=== PATIENT | male | born 1995 | race Caucasian/White ===

== ENCOUNTER 2021-09-28 12:48 | Emergency (ER) | payer SELFPAY ==
[2021-09-28 12:58] VITALS: BP 156/93; PULSE 102; RESP 16; TEMP 36.6; O2SAT 96
--- NOTE | 2021-09-28 13:01 | ED.ANXIETY ---
HPI - Anxiety General Chief Complaint: Anxiety Stated Complaint: panic attack Time Seen by Provider: 09/28/21 12:50 Source: patient, family and RN notes reviewed History of Present Illness HPI narrative: Patient is a 26-year-old male who presents the urgent care with his family member with complaints of possible panic attack. Patient states that started at 8 PM last night and he has had clammy hands and feet with a fast heart rate. Patient also reports of intermittent nausea but denies any vomiting. Denies of any recent fevers. States that he does have a history of anxiety and has not been treated for some time. Patient does have a history of following up with psychiatrist which she states he will do if necessary . Patient is currently not on any medications for anxiety. No other acute complaints. No acute distress noted. Patient aware of the plan of care. Some parts of this dictation were generated by voice recognition software and may contain typographical and/or grammatical inaccuracies. Related Data Allergies Allergy/AdvReac Type Severity Reaction Status Date / Time No Known Allergies Allergy Unverified 05/12/17 11:20 Review of Systems Review of Systems: CONSTITUTIONAL: Reports of chills, sweats with possible anxiety EYES: Denies visual changes, redness, or discharge. ENT: Denies rhinorrhea, congestion, sore throat, or otalgia. CARDIOVASCULAR: Denies chest pain, edema. Reports of fast heart rate . RESPIRATORY: Denies cough or dyspnea. GASTROINTESTINAL: Denies abdominal pain, nausea, vomiting, or diarrhea. GENITOURINARY: Denies dysuria or hematuria. SKIN: Denies rash or itching. Reports of clammy hands and feet MUSCULOSKELETAL: Denies back pain, joint pain, or myalgia. NEUROLOGIC: Denies headache, numbness, or weakness. All other systems reviewed are negative, except as documented in HPI. PMFSH Social History Social History Substance use type: does not use Comments At the time of my signature, I reviewed and agree with the nursing past medical, surgical, social, and family history. There is no relevant family history pertinent to the patient complaint. Exam Narrative: GENERAL: This is a well-nourished, well-developed patient, in no apparent distress. HEAD: normocephalic, atraumatic. EYES: PERRL. Sclera clear/white. Vision is grossly intact. EARS: External ears normal, auditory canals clear and without drainage, TMs normal without perforation. Hearing grossly intact. NOSE: External nose normal with no obvious nasal discharge, nares without redness, no rhinorrhea. THROAT: Mucous membranes moist, mild postnasal drainage NECK: Neck supple, CARDIOVASCULAR: Regular rate and rhythm RESPIRATORY: Clear to auscultation. Breath sounds equal bilaterally. No wheezes, rales, or rhonchi. SKIN: warm, intact with no suspicious lesions or rash, good texture and turgor. NEURO: awake, alert, and oriented to person, place and time. There were no obvious focal neurologic abnormalities. EXTREMITIES: No clubbing, cyanosis, or edema. Course Course Level of Care: Express Care Visit Vital Signs Vital signs: Vital Signs Temperature 97.9 F 09/28/21 12:58 Pulse Rate 102 H 09/28/21 12:58 Respiratory Rate 16 09/28/21 12:58 Blood Pressure 156/93 H 09/28/21 12:58 Pulse Oximetry 96 09/28/21 12:58 Temperature 97.9 F 09/28/21 12:58 Pulse Rate 102 H 09/28/21 12:58 Respiratory Rate 16 09/28/21 12:58 Blood Pressure 156/93 H 09/28/21 12:58 Pulse Oximetry 96 09/28/21 12:58 Reviewed-patient is informed that they may have pre-hypertension or hypertension based on a blood pressure reading in the department. I recommend the patient call the primary care provider listed on their discharge instructions or a physician of their choice this week to arrange follow-up for further evaluation of possible pre-hypertension or hypertension. MDM - Anxiety MDM Narrative Medical decision making narrative: Explained to the pat
== END 2021-09-28 13:11 | disposition home or self-care (01) ==
PROVIDERS: Emergency Provider Nurse Practitioner Family; PCP Nurse Practitioner Family
DX: F41.9 Anxiety disorder, unspecified (principal)
CPT/HCPCS: 99203; G0463

== ENCOUNTER 2022-07-21 18:05 | Emergency (ER) | payer BC, SELFPAY ==
--- NOTE | 2022-07-21 18:07 | ED.EAR ---
HPI - Ear Problem General Chief complaint: Ear Stated complaint: Ear Problem Time Seen by Provider: 07/21/22 18:08 Source: patient and RN notes reviewed History of Present Illness HPI Narrative: Patient is a 27-year-old male who presents to urgent care with complaints of right ear discomfort for the last couple days. Patient states he has been using ear wax removal drops to the ear. Denies any upper respiratory issues. No other acute complaints. No acute distress noted. Patient aware of the plan care. Some parts of this dictation were generated by voice recognition software and may contain typographical and/or grammatical inaccuracies. Related Data Allergies Allergy/AdvReac Type Severity Reaction Status Date / Time No Known Allergies Allergy Verified 07/21/22 18:23 Review of Systems Review of Systems: CONSTITUTIONAL: Denies fever, chills, or sweats. EYES: Denies visual changes, redness, or discharge. ENT: Denies rhinorrhea, congestion, sore throat . Reports right otalgia CARDIOVASCULAR: Denies chest pain, palpitations, or edema. RESPIRATORY: Denies cough or dyspnea. GASTROINTESTINAL: Denies abdominal pain, nausea, vomiting, or diarrhea. GENITOURINARY: Denies dysuria or hematuria. SKIN: Denies rash or itching. MUSCULOSKELETAL: Denies back pain, joint pain, or myalgia. NEUROLOGIC: Denies headache, numbness, or weakness. All other systems reviewed are negative, except as documented in HPI. PMFSH Social History Social History Substance use type: does not use Comments At the time of my signature, I reviewed and agree with the nursing past medical, surgical, social, and family history. There is no relevant family history pertinent to the patient complaint. Exam Narrative: GENERAL: This is a well-nourished, well-developed patient, in no apparent distress. HEAD: normocephalic, atraumatic. EYES: PERRL. Sclera clear/white. Vision is grossly intact. EARS: External ears normal, auditory canals clear and without drainage, cerumen noted bilaterally with impaction to the right. Left TM normal without perforation. Hearing grossly intact. NOSE: External nose normal with no obvious nasal discharge, nares without redness, no rhinorrhea. THROAT: Mucous membranes moist NECK: Neck supple, non-tender without lymphadenopathy, masses or thyromegaly. CARDIOVASCULAR: Regular rate and rhythm without murmurs, gallops, or rubs. RESPIRATORY: Clear to auscultation. Breath sounds equal bilaterally. No wheezes, rales, or rhonchi. SKIN: warm, intact with no suspicious lesions or rash, good texture and turgor. NEURO: awake, alert, and oriented to person, place and time. There were no obvious focal neurologic abnormalities. EXTREMITIES: No clubbing, cyanosis, or edema. Course Course Level of Care: Express Care Visit Vital Signs Vital signs: Vital Signs Temperature 97.8 F 07/21/22 18:10 Pulse Rate 75 07/21/22 18:10 Respiratory Rate 14 07/21/22 18:10 Blood Pressure 148/78 H 07/21/22 18:10 Pulse Oximetry 98 07/21/22 18:10 Oxygen Delivery Room Air 07/21/22 18:10 Temperature 97.8 F 07/21/22 18:10 Pulse Rate 75 07/21/22 18:10 Respiratory Rate 14 07/21/22 18:10 Blood Pressure 148/78 H 07/21/22 18:10 Pulse Oximetry 98 07/21/22 18:10 Oxygen Delivery Room Air 07/21/22 18:10 reviewed- Patient is informed that they may have pre-hypertension or hypertension based on a blood pressure reading in the department. I recommend the patient call the primary care provider listed on their discharge instructions or a physician of their choice this week to arrange follow-up for further evaluation of possible pre-hypertension or hypertension. Procedures Ear Wax Removal Right Ear: Cerumenolytic Used: other ( lighted curette) TM Examination: TM(s) intact, normal appearance Patient Tolerated Procedure: well and no complications Complications: no problems Additional Comments:
[2022-07-21 18:10] VITALS: BP 148/78; PULSE 75; RESP 14; TEMP 36.6; O2SAT 98
== END 2022-07-21 18:30 | disposition home or self-care (01) ==
PROVIDERS: Emergency Provider Nurse Practitioner Family
DX: H61.21 Impacted cerumen, right ear (principal); F41.9 Anxiety disorder, unspecified
CPT/HCPCS: 69210; 99213; G0463

== ENCOUNTER 2025-03-11 08:59 | Emergency (ER) | payer BC, SELFPAY ==
--- NOTE | 2025-03-11 09:05 | ED.SKABFB ---
HPI - Skin/Abscess/Foreign Bdy General Chief complaint: Skin/Abscess/Foreign Body Stated complaint: remove tick head Time Seen by Provider: 03/11/25 09:05 Source: patient, RN notes reviewed and old records reviewed Mode of arrival: ambulatory Limitations: no limitations History of Present Illness HPI narrative: 29-year-old male presents to the [facility] with concerns of a tick head being left in the right upper arm Patient reports that he pulled a tick off of his arm yesterday. Had washed it. Has also tried cleaning it with peroxide and alcohol. Believes there is a head still stuck. No redness or swelling noted. Onset (ago): day(s) (1) Related Data Allergies Allergy/AdvReac Type Severity Reaction Status Date / Time No Known Allergies Allergy Verified 07/21/22 18:23 Review of Systems Review of Systems: All systems reviewed & are unremarkable except as noted in HPI and below Constitutional: Constitutional: Reports no additional constitutional complaints Musculoskeletal: Musculoskeletal: Reports no additional musculoskeletal complaints Integumentary/Breasts: Skin/Breast: Reports as per HPI PMFSH Social History Social History Substance use type: does not use Comments At the time of my signature, I reviewed and agree with the nursing past medical, surgical, social, and family history. There is no relevant family history pertinent to the patient complaint. Exam Const: General: cooperative, healthy appearing, comfortable, no acute distress, well developed, alert and well nourished Nutritional Appearance: well nourished Orientation/consciousness: patient oriented x3 Limitations: no limitations HENMT: Head: normal to inspection Eyes: General: appearance normal, both eyes and all related structures Alignment and Position: alignment normal Neck: Neck: normal visual inspection, full ROM, no lymphadenopathy and no meningeal signs Chest: Chest palpation & inspection: normal inspection of the chest Resp: Effort & Inspection: normal respiratory effort and able to speak in complete sentences Cardio: Rate: regular rate Skin: General skin exam: normal color and no rashes or lesions noted Full body images:  1. area of tick. patient tried removing the dark center. Neuro: General: patient oriented x3, gait normal, moves all extremities and no meningeal signs Cognition (Neuro): normal cognition Speech: normal speech Gait exam (Neuro): Normal gait present Extrem: General: normal to inspection, full ROM, capillary refill normal and normal gait Psych: Appearance: grossly normal and well kempt Mental Status: mental status grossly normal Speech and movement: Normal speech and movement present and Clear speech present Affect: normal affect Attitude: cooperative Course Course Emergency Course: Area cleaned with Betadine, used an 18 gauge scraped the dark center from the middle of the wound. Cleaned again with Betadine. Patient tolerated well. Bandage placed. Level of Care: Express Care Visit Vital Signs Vital signs: Vital Signs Temperature 97.6 F 03/11/25 09:10 Pulse Rate 92 03/11/25 09:10 Respiratory Rate 16 03/11/25 09:10 Blood Pressure 145/77 H 03/11/25 09:10 Pulse Oximetry 99 03/11/25 09:10 Oxygen Delivery Room Air 03/11/25 09:10 Temperature 97.6 F 03/11/25 09:10 Pulse Rate 92 03/11/25 09:10 Respiratory Rate 16 03/11/25 09:10 Blood Pressure 145/77 H 03/11/25 09:10 Pulse Oximetry 99 03/11/25 09:10 Oxygen Delivery Room Air 03/11/25 09:10 Reviewed MDM - Skin/Abscess/Foreign Bdy MDM Narrative Medical decision making narrative: Patient sitting in exam room. Patient is nontoxic, vitals stable. Patient presents with concerns of a tick at left in his right upper arm. Area cleaned, removed dark center Prescribe prophylactic dose of doxycycline Patient appropriate for outpatient treatment with close follow-up Discharge instructions reviewed with patient, as well as provided in writing per nursing staff. The instructions also include specific and strict return/GO TO THE ER as well as f/u information. All questions have been answered, and the patient deny any further questions with discharge and discharge plan. Some parts of this dictation were generated by voice recognition software and may contain typographical and/or grammatical inaccuracies. Differential Diagnosis Differential diagnosis: Likely abscess of skin or subcutaneous tissue, urticaria, cellulitis, insect bites and contact dermatitis Critical Care Time Critical Care Time Critical Care Time: No Discharge Plan Discharge Clinical Impression: Tick bite of left upper arm Patient Disposition: Home Condition: Stable Instructions: Antibiotic Form, Tick Bite (ED) Additional Instructions: Wash area twice a day with warm soapy water, pat dry Patient Language: Telugu Prescriptions: New doxycycline monohydrate 100 mg tablet 200 mg PO ONCE Qty: 2 0RF No Action hydroxyzine HCl 25 mg tablet 25 mg PO TID PRN (Reason: anxiety) Qty: 30 0RF Follow-up/Referrals: PHYSICIAN NOT ON STAFF,NONSTAFF [Primary Care Provider] - Time of Disposition: 09:26
[2025-03-11 09:10] VITALS: BP 145/77; PULSE 92; RESP 16; TEMP 36.4; O2SAT 99
--- OUTSIDE RECORDS SUMMARY | 2025-03-11 09:10 | XMS_ITS | Patient Health Record ---
Author Organization [facility] [place] Address [address] [address] Care Team Providers Care Tapper Supervisor Name Role Phone Iglesia Mazariegos Unavailable [phone] Reason For Referral No Information Medications Medication SIG (Take, Route, Fr equency, Duration) Notes Start Date End Date Status hydrOXYzine HCl 25 MG Oral Active busPIRone HCl 5 MG Oral A ctive Plan Of Treatment No Information
--- OUTSIDE RECORDS SUMMARY | 2025-03-11 09:10 | XMS_ITS | Clinical Summary ---
Author Organization [facility] Address [address] [place] [address] Care Team Providers Care Coordinator Skill Training Program Name Role Phone [place] Primary Care Provider [phone] Allergies No known active allergies Medications naproxen (NAPROSYN) 500 mg tablet Take 1 tablet (500 mg total) by mouth 2 (two) times a day with meals 30 tablet 2 Active tamsulosin (FLOMAX) 0.4 mg extended release capsule Take 1 capsule (0.4 mg total) by mouth daily for 7 days 7 capsule 2 Active ondansetron ODT (ZOFRAN-ODT) 4 mg disintegrating tablet Take 1 tablet (4 mg total) by mouth every 8 (eight) hours as needed for nausea 10 tablet 2 Active Active Problems No known active problems Surgical History Surgery Date Site/Laterality Comments NO PAST SURGERIES Medical History Medical History Date Comments Anxiety Social History Tobacco Use Types Packs/Day Years Used Date Smoking Tobacco: Never Smokeless Tobacco: Never Tobacco Cessation:Counseling Given: Not Answered Alcohol Use Standard Drinks/Week Comments Yes 0 (1 standard drink = 0.6 oz pur e alcohol) Personal Safety Answer Date Recorded Getting School Help Needed Not on file 08/20 Sex and Gender Information Value Date Recorded Sex Assigned at Not on file Legal Sex Male 9:04 AM [employer] Gender Identity Not on file Sexual Orientation Not on file Obstetrics History Last Filed Vital Signs Vital Sign Reading Time Taken Comments Blood Pressure 165/87 07/10/2022 3:20 AM [employer] Pulse 72 07/10/2022 3:20 AM [employer] Temperature 37.1 C (98.8 F) 07/10/2022 3:20 AM [employer] Respiratory Rate 16 07/10/2022 3:20 AM [employer] Oxygen Saturation 100% 07/10/2022 3:20 AM [employer] Inhaled Oxygen Concentration - - Weight 79.4 kg (175 lb) 07/10/2022 3:20 AM [employer] Height 180.3 cm (5' 11) 07/10/2022 3:20 AM [employer] Body Mass Index 24.41 07/10/2022 3:20 AM [employer] Plan of Treatment Health Maintenance Due Date Last Done Comments Depression Screening 1994 Hepatitis C Screening 1994 Regular Well Visit/Exam 18-64 2012 HPV Vaccines (1 - 3-dose SCDM series) 2021 Covid-19 Vaccine ( season) 2024 03/11/2021, 02/18/2021 Influenza Vaccine (#1) 2025 06/18/2019, 2017 DTaP/Tdap/Td Vaccine (8 - Td or Tdap) 12/15/2027 12/14/2017, 02/13/2007, 03/16/1998, Additional history exists Hepatitis B Screening Completed 1994 , 1994, 1994 Varicella Vaccines Completed 02/13/2007, 09/26/1995 Pneumococcal vaccine <65 Aged Out No longer eligible based on patient's age to complete this topic Insurance [employer] Member Subscriber Plan / Payer (Ef fective 2021-Present) Name:Nehemias Mosley Relation to Subscriber:Self Name:Nehemias Mosley Payer ID:[id number] (NAIC) Type:NICHOLAS MCCARTNEY Address: [facility] [id number] [place] [id number] Care Teams Coordinator Skill Training Program Relationship Specialty Start Date End Date [place] PA PCP - General Orthopedic Surgery 07/10/22
--- OUTSIDE RECORDS SUMMARY | 2025-03-11 09:10 | XMS_ITS | Data Portability ---
Author Organization [place] [facility]- Address # [address] [place] [address] Assessment Encounter Date Assessment Date Assessment LastModified by Organization Details LastModified Time 07/29/2010 07/29/2010 Overall, depression appears to be under control. If only his academic performance could or would improve, things would be even better.. We will continue on same dose of Celexa since Dad feels in general that things are well from the standpoint of deression. Not available 04/27/2011 02:01:54 01/03/2011 01/03/2011 Poor academic performance - pt puts no effort into school work. Past hx of depression - is currently on antidepressant - doing better that what he had been. overall, I am not sure that patient is in the best of enviromentsbut I only see a few minutes of interchange in the office between adoptive father and pt. In view of the fact that pt is leaving to spend the summer with hes parents, I do not see a reason to change medication or doase at this point because I nor anyone who know ralph will be around to assesss the change. In additon, with changing his enviroment, I do not think that changing hes med also would be a good idea - all at the same time. I advised pt and adoptive father to return here after he returns from [place] if that occurs. Not available 03/14/2011 02:04:52 12/12/2011 12/12/2011 Contusion to right foot - advised ibuprofen, ice packs to area, and PE excuse for next 2 weeks at school. Anticipatory guidance to mother. Followup here as needed. malika Not available 12/12/2011 15:09:29 08/27/2012 08/27/2012 Hearing difficulties in right ear - not sure this is due to a serous otitis or actual damage to TM. This was explained to father and patient. Will refer to ENT for more definitive exam - has appt for malika gilbert Not available 08/27/2012 19:21:33 Plan of Treatment Reminders Order Date Submit Date Provider Last Modified By Organization Details Last Modified Time Details Appointments None recorded. Lab None recorded. Referral ENT referral 2012 013 ROMERO Not available 3 03:32:45 Procedures None recorded. Surgeries None recorded. Imaging tympanogram 2012 013 [facility], [address] [facility] Ambrocio [place], [place], [address], 3 03:32:41 Medication Orders Celexa 40 mg tablet 2009 010 ROMERO Not available 3 03:26:04 Patient TargetsNo targets recorded. Patient InstructionsNo instructions recorded. Reason for Referral Referring Physician: Arabella Bain, Pediatric Medicine, Encounter Date: 08/27/2012 Results Created Date Observation Date Name Description Value Unit Range Abnormal Flag Note LastModifiedBy Organization Detail LastModifiedTime 08/27/19 13 08/27/2012 joslyn jackson Right Type B Curve Flat Not Available [address] [place], [place], [address], 08/27/2012 19:21:33 08/27/19 13 08/27/2012 joslyn jackson Left Type A Normal Not Available [address] [place], [place], [address], 08/27/2012 19:21:33 12/13/19 12 12/12/2011 imagi lizandro/john baldwin tic resul t No observ ation record ed. [address] [place], [address], 03/08/2013 03:29:33 Result Notes None recorded. Problems Name Problem SNOMED Code Status Onset Date Resolution Date Notes Provider Name and Address Organization Details Recorded Time Joint pain in ankle and foot Active Not Available [facility] 3 03:02:37 Sudden hearing loss 58111746 Active Not Available [facility] 3 03:02:37 Contusion of ankle 80961775 Active Not Available [facility] 3 03:03:03 Objective tinnitus 70754524 Active Not Available [facility] 3 03:02:37 Otalgia 96276660 Active Not Available [facility] 3 03:02:37 Impacted cerumen 89012324 Active Not Available [facility] 3 03:02:37 Contusion of foot 82505700 Active Not Available [facility] 3 03:03:03 Depressive disorder 72003531 Active 010 Not Available [facility] 3 03:02:37 Problem Notes None recorded. Procedures Surgical History Date Name Laterality Status Provider Name and Address Organization Details Recorded Time 08/27/19 13 Cerumen Removal w/ instrumentation completed Arabella Bain MD [address] [place] [address] [address], [address], [facility], 08/27/2012 19:21:33 Imaging Results None recorded. Procedure Notes None recorded. Medical Equipment None Reported. Allergies No known drug allergies Medications Name Sig Start Date Stop Date Status Note LastModified by Organization Details LastModified Time minocycline 100 mg capsule active Not Available Not Available Not Available minocycline 50 mg capsule active Not Available Not Availabl e Not Available Celexa 40 mg tablet Take 1.5 tablets every day by oral route for 30 days. 010 active Not Available Not Available Not Avai lable amoxicillin 875 mg-potassium clavulanate 125 mg tablet active Not Available Not Availabl e Not Available Celexa active 60 mg Not Available Not Availa ble Not Available Vitals Date Recorded Body height Body weight Body mass index (BMI) Respiratory rate Body temperature Heart rate Systolic And Diastolic Provider Name and Address Organization Details Last Updated DateTime 3 170.815 cm 93706.1 607 g 17.1 kg/m2 20 /min 98.4 [degF] 96 /min 112/64 mm[Hg] Breanna Quinones [facility], 3 15:02:14 Date Recorded Body height Body weight Body mass index (BMI) Respiratory rate Body temperature Heart rate Systolic And Diastolic Provider Name and Address Organization Details Last Updated DateTime 2 172.72 cm 14073.1 02959 g 17.9 kg/m2 16 /min 99.6 [degF] 68 /min 132/90 mm[Hg] SAMUEL Silver [address], [address] [place] [address] [employer], 2 12:18:45 Date Recorded Body weight Respiratory rate Body temperature Heart rate Systolic And Diastolic Provider Name and Address Organization Details Last Updated DateTime 1 74932.3 3943 g 16 /min 99.8 [degF] 60 /min 116/84 mm[Hg] [facility], 1 13:18:38 Date Recorded Body weight Respiratory rate Body temperature Heart rate Systolic And Diastolic Provider Name and Address Organization Details Last Updated DateTime 0 10864.8 9365 g 18 /min 98.6 [degF] 60 /min 148/98 mm[Hg] [facility], 0 09:26:56 Social History None recorded. Functional Status None recorded. Mental Status None recorded. Family History Nothing Reported. Medical History Condition Response Diabetes N Bedwetting N Other Developmental Delay N ER or UC Visits N Nasal Allergies N Skin problems N Asthma / Wheezing N Frequent Ear Infections N Hospitalizations N Frequent Headaches N ADD or ADHD N Allergies N Broken bones N ear or hearing problems N Sleep Problems / Snoring N Concerns with Hearing or Vision N Constipation N Murmur / Cardiac N Serious Injuries N Albuterol / Nebulizer N History of UTI N Immunizations Vaccine Type Date Status Note Provider Nam e and Address Organization Details Recorded Time OPV, trivalent 4 completed Not Available [facility] 06/29/2011 06:14:11 Hep B, unspecified formulation 5 completed Not Available [facility] 06/29/2011 06:14:11 DTaP-Hib 5 completed Not Available [facility] 06/29/2011 06:14:11 OPV, trivalent 5 completed Not Available [facility] 06/29/2011 06:14:11 Hep B, unspecified formulation 4 completed Not Available [facility] 06/29/2011 06:14:11 MMR 5 completed Not Available [facility] 06/29/2011 06:14:11 DTaP-Hib 5 completed Not Available [facility] 06/29/2011 06:14:11 varicella 6 completed Not Available [facility] 06/29/2011 06:14:11 OPV, trivalent 5 completed Not Available [facility] 06/29/2011 06:14:11 DTaP-Hib 4 completed Not Available [facility] 06/29/2011 06:14:11 DTaP, unspecified formulation 8 completed Not Available [facility] 06/29/2011 06:14:11 DTaP-Hib 4 completed Not Available [facility] 06/29/2011 06:14:11 MMR 8 completed Not Available [facility] 06/29/2011 06:14:11 Hep B, unspecified formulation 4 completed Not Available [facility] 06/29/2011 06:14:11 OPV, trivalent 4 completed Not Available [facility] 06/29/2011 06:14:11 meningococcal MPSV4 8 completed Not Available [facility] 06/29/2011 06:14:11 Tdap 7 completed Not Available [facility] 06/29/2011 06:14:11 varicella 7 completed Not Available [facility] 06/29/2011 06:14:11 Past Encounters Encounter ID Performer Location Encounter Start Date Encounter Closed Date Diagnosis/Indication Diagnosis SNOMED-CT Code Diagnosis ICD10 Code Diagnosis Note [id number] [facility] [address] [place] [address],[address] [address] 03/26/2010 08:56:40 03/26/2010 09:17:54 [id number] Arabella Bain [facility] [address] [place] [address],[facility] [address] [place] [address] 07/29/2010 09:19:09 07/30/2010 14:16:52 [id number] Arabella Bain [facility] [address] [place] [address],[facility] [address] [place] [address] 01/03/2011 12:22:58 01/05/2011 10:27:36 [id number] Arabella Bain [facility] [address] [place] [address],[facility] [address] [place] [address] 12/12/2011 11:41:45 12/15/2011 12:36:29 [id number] Arabella Bain [facility] [address] [place] [address],[facility] [address] [place] [address] 08/27/2012 14:46:02 08/30/2012 10:42:43 Health Concerns Section Related Observation LastModified by Organization Detai ls LastModified Time None Recorded Concern Status LastModified by Organization Details LastModified Time None Recorded Advance Directives Directive None Recorded Payers Insurance Date Sequence Insurance Name Policy Number Policy Bynum Covered Member ID Bynum Member ID Guarantor Name 03/29/2014 1 [employer] - CHOICE - OPEN ACCESS (POS) [id number] Vi Mosley [id number] Nehemias Mosley 03/29/2014 1 [facility] [id number] Vi Mosley [id number] Nehemias Mosley
--- OUTSIDE RECORDS SUMMARY | 2025-03-11 09:10 | XMS_ITS | Encounter Summary ---
Author Organization [facility] Address [address] [place] [address] Phone Care Team Providers Care Owner Consulting Engineer Name Role Phone Vin Lake Primary Care Provider Reason for Visit * Reason Comments Medication Refill Encounter Details Date Type Department Care Team (Late st Contact Info) Description [facility] [place] [address] [place] [address] Vin Lake PAC [address] [place] [address] Medication Refill Social History Tobacco Use Types Packs/Day Years Used Date Smoking Tobacco: Never Smokeless Tobacco: Never Alcohol Use Standard Drinks/Week Comments Yes 0 (1 standard drink = 0.6 oz pur e alcohol) PHQ-2 Answer Date Recorded Total Score - Questions 1-9 1 11/12 Sexually Active Control Partners Comments Yes Sex and Gender Information Value Date Recorded Sex Assigned at Not on file Legal Sex Male 9:23 AM CDT Gender Identity Not on file Sexual Orientation Not on file documented as of this encounter Miscellaneous Notes * Telephone Encounter - Vin Lake PAC - 09/14/2022 5:20 PM CST Rx request approved. 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 Requested Prescriptions Pending Prescriptions Disp Refills hydrOXYzine (ATARAX) 25 MG Tablet [Pharmacy Med Name: hydrOXYzine HCl 25 MG Oral Tablet] 90 Tablet 0 Sig: Take 1 Tablet by mouth every 8 hours as needed for Anxiety for up to 60 days. Not Delegated - Off Protocol Failed - 09/14/2022 3:49 PM Failed - This refill cannot be delegated Failed - Active on medication list Passed - Visit with relevant provider in past 12 months or upcoming 90 days Recent Visits Date Type Provider Dept 07/13/22 Office Visit Vin Lake, PAC [facility] 06/02/22 Office Visit Vin Lake, PAC [facility] 04/21/22 Office Visit Vin Lake, PAC [facility] 11/23/21 Office Visit Sanam Pineda, PAC [facility] Showing recent visits within past 365 days and meeting all other requirements Future Appointments Date Type Provider Dept 12/01/22 Appointment Vin Lake, PAC [facility] Showing future appointments within next 90 days and meeting all other requirements 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 documented in this encounter Plan of Treatment Upcoming Encounters Date Type Department Care Team (Late st Contact Info) Description 01/02/2026 8:00 AM CDT Lab [facility] [address] [place] [phone] [facility] 01/09/2026 4:45 PM CDT Office Visit [facility] [place] [address] [place] [phone] Vin Lake, PAC [address] [place] [address] documented as of this encounter Visit Diagnoses Diagnosis Anxiety Anxiety state, unspecified documented in this encounter Care Teams Owner Consulting Engineer Relationship Specialty Start Date End Date Vin Lake, [facility] [address] [place] [phone] PCP - General Physician Bandage Wrapping Machine Operator 04/21/22 documented as of this encounter
--- OUTSIDE RECORDS SUMMARY | 2025-03-11 09:10 | XMS_ITS | Encounter Summary ---
Author Organization [facility] Address [address] [place] [address] Phone Care Team Providers Care Merchandising Internship Name Role Phone Vin Lake Primary Care Provider Reason for Visit * Reason Comments Medication Refill Encounter Details Date Type Department Care Team (Late st Contact Info) Description 02/01/2023 [facility] [place] [address] [place] [address] Vin Lake PAC [address] [place] [address] Medication Refill Social History Tobacco [...] Telephone Encounter - Vin Lake PAC - 02/01/2023 12:05 PM CDT Rx request approved * Telephone Encounter - Brandi Pettit RN - 02/01/2023 9:56 AM CDT Medication failed the protocol, provider to review and approve the medication order if appropriate. Requested Prescriptions Pending Prescriptions Disp Refills hydrOXYzine (ATARAX) 25 MG Tablet [Pharmacy Med Name: hydrOXYzine HCl 25 MG Oral Tablet] 90 Tablet 0 Sig: TAKE 1 TABLET BY MOUTH EVERY 8 HOURS NEEDED FOR ANXIETY FOR UP TO 60 DAYS Not Delegated - Off Protocol Failed - 02/01/2023 8:34 AM Failed - This refill cannot be delegated Passed - Visit with relevant provider in past 12 months or upcoming 90 days Recent Visits Date Type Provider Dept 12/22/22 Office Visit Vin Lake, [facility] 07/13/22 Office Visit Vin Lake, PAC [facility] 06/02/22 Office Visit Vin Lake, [facility] 04/21/22 Office Visit Vin Lake, PAC [facility] Showing recent visits within past 365 days and meeting all other requirements Future Appointments No visits were found meeting these conditions. Showing future appointments within next 90 days and meeting all other requirements documented in this encounter Plan of Treatment Upcoming Encounters Date Type Department Care Team (Late st Contact Info) Description 01/02/2026 8:00 AM CDT Lab [facility] [place] [address] [place] [phone] [facility] 01/09/2026 4:45 PM CDT Office Visit [facility] [place] [address] [place] [phone] Vin Lake PAC [address] [place] [address] documented as of this encounter Visit Diagnoses Diagnosis Anxiety Anxiety state, unspecified documented in this encounter Care Teams Merchandising Internship Relationship Specialty Start Date End Date Vin Lake, PAC [address] [place] [address] PCP - General Physician Vice President Of Recruiting 04/21/22 documented as of this encounter
--- OUTSIDE RECORDS SUMMARY | 2025-03-11 09:10 | XMS_ITS | Clinical Summary ---
Author Organization [facility] Medic al [facility] Address [address] [place] [address] Phone Care Team Providers Care Bench Shear Operator Name Role Phone Vin Lake Primary Care Provider [phone] Allergies No known active allergies Medications No known medications Active Problems Problem Noted Date Diagnosed Date MDD (major depressive disord er), recurrent episode, moderate 02/22/2024 STEFFI (generalized anxiety disorder) 06/02/2022 Depressive disorder 03/26/2010 Encounters Date Type Department Care Team Description 03/11/2025 Nurse Triage [facility] [address] [place] [phone] Vin Lake, PAC Tick Bite 01/02/2025 4:45 PM CDT Office Visit [facility] Primary [facility] [place] [address] Vin Lake, WILFRED Preventative health care (Adult) (Primary Dx); MDD (major depressive disorder), recurrent episode, moderate (HCC); STEFFI (generalized anxiety disorder) Discharge Disposition: Discharged to home or Selfcare 01/01/2025 9:00 AM CDT Lab [facility] [place] [address] [facility] health care (Adult) Discharge Disposition: Discharged to home or Selfcare 01/01/2025 Results Follow-Up [facility] Primary Care - [place] [address] [place] [address] Vin Lake, WILFRED CMP (COMPREHENSIVE METABOLIC PANEL), LIPID PANEL, CBC WITH AUTO DIFFERENTIAL, THYROID SCREEN WITH REFLEX 01/01/2025 Travel 12/12/2024 Nurse Triage [facility] Central Call Center [address] [place] [address] Vin Lake, WILFRED Suicide Attempt from Last 3 Months Immunizations Immunization Administration Dates Next Due DTAP VACCINE, UNSPECIFIED FORMULATION 03/16/1998 DTAP/HIB COMBINED VACCINE 06/12/1995,,1994,05/13 Hepatitis B Vaccine,unspecif ied Formulation 1994,1994,1994 Influenza Vaccine, MDCK,quad rivalent, pres free 06/18/2019 Influenza Vaccine, Quadrivalent, PF 04/25/2018 Influenza,Split Virus,Trivalent,Injectable,PF 04/22/2024 MMR Vaccine 03/16/1998,03/13/1995 Meningococcal Polysaccharide Vaccine (MPSV4) 02/12/2008 OPV 06/12/1995, 5,1994,05/13 TDAP Vaccine 12/14/2017,02/13/2007 Varicella Vaccine Live 02/13/2007,09/26/1995 Family History Medical History Relation Name Comments Prostate Cancer Father No Known Problems Mother Relation Name Status Comments Father Alive Mother Alive Social History Tobacco Use Types Packs/Day Years Used Date Smoking Tobacco: Never Smokeless Tobacco: Never Tobacco Cessation:Counseling Given: No Alcohol Use Standard Drinks/Week Comments Not Currently 0 (1 standard drink = 0.6 oz pur e alcohol) [facility] Utilities Answer Date Recorded In the past 12 months has [employer], gas, oil, or water [employer] threatened to shut off services in your home? Patient declined 01/02/2025 Social Connection and Isolation Panel Answer Date Recorded In a typical week, how many times do you talk on the phone with family, friends, or neighbors? Patient declined 01/02/2025 How often do you get togethe r with friends or relatives? Patient declined 01/02/2025 How often do you attend catholic or mu-ism serv ices? Patient declined 01/02/2025 Do you belong to any clubs o r organizations such as catholic groups, unions, fraternal or athletic groups, or school groups? Patient declined 01/02/2025 How often do you attend meet ings of the clubs or organizations you belong to? Patient declined 01/02/2025 Are you , , di vorced, , never , or living with a partner? Patient declined 01/02/2025 AUDIT-C Answer Date Recorded Q1: How often do you have a drink containing alc ohol? Patient declined 01/02/2025 Q2: How many drinks containi ng alcohol do you have on a typical day when you are drinking? Patient declined 01/02/2025 Q3: How often do you have si x or more drinks on one occasion? Patient declined 01/02/2025 Overall Financial Resource Strain (CARDIA) Answe r Date Recorded How hard is it for you to pa y for the very basics like food, housing, medical care, and heating? Patient declined 01/02/2025 PHQ-2 Answer Date Recorded Total Score - Questions 1-9 17 12/13 [facility] - Occupational Stress Questionnaire Answer Date Recorded Do you feel stress - tense, restless, nervous, or anxious, or unable to sleep at night because your mind is troubled all the time - these days? Patient declined 01/02/2025 Exercise Vital Sign Answer Date Recorde d On average, how many days pe r week do you engage in moderate to strenuous exercise (like a brisk walk)? Patient declined On average, how many minutes do you engage in exercise at this level? Patient declined 01/02/2025 Hunger Vital Sign Answer Date Recorded Within the past 12 months, y ou worried that your food would run out before you got the money to buy more. Patient declined Within the past 12 months, t he food you bought just didn't last and you didn't have money to get more. Patient declined PRAPARE - Transportation Answer Date Re corded In the past 12 months, has l ack of transportation kept you from medical appointments or from getting medications? Patient declined 01/02/2025 In the past 12 months, has l ack of transportation kept you from meetings, work, or from getting things needed for daily living? Patient declined 01/02/2025 Housing Stability Vital Sign Answer Ancelmo e Recorded In the last 12 months, was t here a time when you were not able to pay the mortgage or rent on time? Patient declined 01/03/20 25 In the past 12 months, how m any times have you moved where you were living? 0 01/02/2025 At any time in the past 12 m [facility], were you homeless or living in a senior care (including now)? Patient declined 01/02/2025 Sexually Active Control Partners Comments Yes Sex and Gender Information Value Date Recorded Sex Assigned at Not on file Legal Sex Male 9:23 AM CDT Gender Identity Not on file Sexual Orientation Not on file Last Filed Vital Signs Vital Sign Reading Time Taken Comments Blood Pressure 140/80 01/02/2025 4:47 PM CDT Pulse 71 01/02/2025 4:47 PM CDT Temperature 37.6 C (99.6 F) 01/02/2025 4:47 PM CDT Respiratory Rate 18 01/02/2025 4:47 PM CDT Oxygen Saturation 98% 01/02/2025 4:47 PM CDT Inhaled Oxygen Concentration - - Weight 67.6 kg (149 lb) 01/02/2025 4:47 PM CDT Height 180.3 cm (5' 11) 01/04/2024 4:22 PM CDT Body Mass Index 20.78 01/04/2024 4:22 PM CDT Plan of Treatment Upcoming Encounters Date Type Department Care Team (Late st Contact Info) Description 01/02/2026 8:00 AM CDT Lab [facility] Primary [facility] [place] [address] [place] [address] Lab, [facility] 01/09/2026 4:45 PM CDT Office Visit [facility] Primary [facility] [place] [address] [place] [address] Vin Lake, PAC [address] [place] [address] Health Maintenance Due Date Last Done Comments Hepatitis C Virus (HCV) Screening 1994 Human Papillomavirus (HPV) Immunization (1 - 3-dose SCDM series) 2021 Influenza Immunization (#1) 2025 09/0 04/2024, 06/18/2019, 04/25/2018 DTaP/Tdap/Td Immunization (8 - Td or Tdap) 12/15/2027 12/14/2017, 02/13/2007, 03/16/1998, Additional history exists Respiratory Syncytial Virus (RSV) Immunization (Adult) (1 - 1-dose 75+ series) 2069 Hepatitis B Immunization Completed 995, 1994, 1994 Meningococcal Immunization (ACWY) Aged Out 02/12/2008 No longer eligible based on patient's age to complete this topic TdaP Immunization Discontinued 12/14/2017, 02/13/2007 SARS-COV-2 Immunization Completed 09/05/19 25, 03/11/2021, 02/18/2021 Pneumococcal Immunization Combined Aged Out No longer eligible based on patient's age to complete this topic Rotavirus Immunization Aged Out No lo nger eligible based on patient's age to complete this topic Goals Goal Patient Goal Type Associated Problems Recent Progress Patient-Stated? Author Depression Behavioral Health On track(2023 10:32 AM INSPECTOR SALVAGE) No Martha Castanon, [facility] Note: Goal/Objective: Decrease depressive features. Anticipated Time Frame for Goal Completion: 6 months Goal Reviewed with: patient Readiness to change: Thinking about making a change Department associated with goal: [facility] Steps to achieve goal: will attend counseling/psychotherapy sessions at least once monthly, at least 6 sessions, utilizing individual and/or group sessions to express thoughts and feelings. to identify, verbalize and process at least three contributing factors/triggers to depression. to identify and verbalize at least three actions/skills to prevent and/or cope with depression. to put into action, at least one time weekly, for one month, an action/skill to prevent and or cope with depression. Procedures Procedure Name Priority Date/Time Associated Diagnosis Comments THYROID SCREEN WITH REFLEX Routine 01/01/2025 8:44 AM CDT Preventative health care (Adult) CBC WITH AUTO DIFFERENTIAL Routine 01/01/2025 8:44 AM CDT Preventative health care (Adult) THYROID SCREEN WITH REFLEX Routine 01/01/2025 8:44 AM CDT Preventative health care (Adult) LIPID PANEL Routine 01/01/2025 8:44 AM CDT Preventative health care (Adult) CMP (COMPREHENSIVE METABOLIC PANEL) Routine 01/01/2025 8:44 AM CDT Preventative health care (Adult) COMPLETE BLOOD COUNT (CBC) WITH DIFF Routine 01/01/2025 8:44 AM CDT Preventative health care (Adult) from Last 3 Months Results * THYROID SCREEN WITH REFLEX (01/01/2025 8:44 AM CDT) Pathologist [facility] TSH 0.660 0.300 - 5.000 mIU/L 01/01/2025 1:22 PM CDT [facility] Blood Venipuncture / Unknown 01/01/2025 8:44 AM CDT 01/01/2025 8:44 AM CDT us Vin Lake PAC CHEMISTRY ORDERABLES Final R esult [facility] [address] [place] [address] * CBC WITH AUTO DIFFERENTIAL (01/01/2025 8:44 AM CDT) WBC 6.63 4.00 - 12.00 10(3)/mcL 01/01/2025 12:48 PM CDT [facility] RBC 5.05 4.40 - 5.80 10(6)/mcL 01/01/2025 12:48 PM CDT [facility] HEMOGLOBIN (HGB) 16.0 13.0 - 16.5 g/dL 01/01/2025 12:48 PM CDT [facility] HEMATOCRIT (HCT) 47.5 38.0 - 50.0 % 01/01/2025 12:48 PM CDT [facility] MCV 94.1 82.0 - 96.0 fL 01/01/2025 12:48 PM CDT [facility] MCH 31.7 26.0 - 32.0 pg 01/01/2025 12:48 PM CDT [facility] MCHC 33.7 31.0 - 36.0 g/dL 01/01/2025 12:48 PM CDT [facility] PLATELET COUNT 297 140 - 440 10(3)/mcL 01/01/2025 12:48 PM CDT [facility] RDW 12.7 11.8 - 15.5 % 01/01/2025 12:48 PM CDT [facility] MPV 9.8 8.0 - 12.6 fL 01/01/2025 12:48 PM CDT [facility] NEUTROPHILS 53.4 40.0 - 68.0 % 01/01/2025 12:48 PM CDT [facility] LYMPHOCYTES 36.8 19.0 - 49.0 % 01/01/2025 12:48 PM CDT [facility] MONOCYTES 7.2 3.0 - 13.0 % 01/01/2025 12:48 PM CDT [facility] EOSINOPHILS 1.7 0.0 - 8.0 % 01/01/2025 12:48 PM CDT [facility] BASOPHILS 0.9 0.0 - 1.0 % 01/01/2025 12:48 PM CDT [facility] ABSOLUTE NEUTROPHILS 3.54 1.40 - 5.30 10(3)/mcL 01/01/2025 12:48 PM CDT [facility] ABSOLUTE LYMPHOCYTES 2.44 0.90 - 3.30 10(3)/mcL 01/01/2025 12:48 PM CDT [facility] ABSOLUTE MONOCYTES 0.48 0.10 - 0.90 10(3)/mcL 01/01/2025 12:48 PM CDT [facility] ABSOLUTE EOSINOPHIL 0.11 0.00 - 0.50 10(3)/mcL 01/01/2025 12:48 PM CDT [facility] ABSOLUTE BASOPHILS 0.06 0.00 - 0.10 10(3)/mcL 01/01/2025 12:48 PM CDT [facility] NRBC PER 100 WBC 0 01/02/20 12:48 PM CDT [facility] Blood Venipuncture / Unknown 01/01/2025 8:44 AM CDT 01/01/2025 8:44 AM CDT us Vin Lake PAC HEMATOLOGY ORDERABLES Final Result [facility] [address] [place] [address] * LIPID PANEL (01/01/2025 8:44 AM CDT) CHOLESTEROL 154 <200 mg/dL 01/01/2025 2:57 PM CDT [facility] TRIGLYCERIDES 50 <150 mg/dL 01/01/2025 2:57 PM CDT [facility] HDL CHOLESTEROL 56 >40 mg/dL 2:57 PM CDT [facility] LDL 88 <130 mg/dL 01/01/2025 2:57 PM CDT [facility] VLDL 10 10 - 50 mg/dL 01/01/2025 2:57 PM CDT [facility] CHOL/HDL RATIO 2.8 0.0 - 4.4 01/01/2025 2:57 PM CDT [facility] NON-HDL CHOLESTEROL 98 <130 mg/dL 01/01/2025 2:57 PM CDT [facility] IS THE PATIENT REQUIRED TO BE FASTING? Yes 01/01/2025 2:57 PM CDT [facility] HAS THE PATIENT BEEN FASTING? Yes 01/01/2025 2:57 PM CDT [facility] Blood Venipuncture / Unknown 01/01/2025 8:44 AM CDT 01/01/2025 8:44 AM CDT us [place] PAC CHEMISTRY ORDERABLES Final R esult [facility] [address] [place] [address] * (ABNORMAL) CMP (COMPREHENSIVE METABOLIC PANEL) (01/01/2025 8:44 AM CDT) SODIUM 138 136 - 145 mmol/L 01/01/2025 2:57 PM CDT [facility] POTASSIUM 4.0 3.5 - 5.1 mmol/L 01/01/2025 2:57 PM CDT [facility] CHLORIDE 104 98 - 107 mmol/L 01/01/2025 2:57 PM CDT [facility] CO2, VENOUS 27 22 - 30 mmol/L 01/01/2025 2:57 PM CDT [facility] ANION GAP 11.0 <18.0 mmol/L 01/01/2025 2:57 PM CDT [facility] GLUCOSE 94 70 - 99 mg/dL 01/01/2025 2:57 PM CDT [facility] BUN 10 9 - 21 mg/dL 01/01/2025 2:57 PM CDT [facility] CREATININE, BLOOD 0.95 0.70 - 1.30 mg/dL 01/01/2025 2:57 PM CDT [facility] BUN/CREATININE RATIO 11(L) 12 - 20 ratio 01/01/2025 2:57 PM CDT [facility] TOTAL PROTEIN 7.2 6.0 - 8.0 g/dL 01/01/2025 2:57 PM CDT [facility] ALBUMIN 5.0 3.5 - 5.0 g/dL 01/01/2025 2:57 PM CDT [facility] A/G RATIO 2.3(H) 1.0 - 2.2 01/01/2025 2:57 PM CDT [facility] CALCIUM 9.1 8.7 - 10.5 mg/dL 01/01/2025 2:57 PM CDT [facility] T BILI 0.9 0.2 - 1.2 mg/dL 01/01/2025 2:57 PM CDT [facility] SGOT (AST) 22 <43 U/L 01/01/2025 2:57 PM CDT [facility] SGPT (ALT) 26 <56 U/L 01/01/2025 2:57 PM CDT [facility] ALKALINE PHOSPHATASE 42 40 - 150 U/L 01/01/2025 2:57 PM CDT [facility] IS THE PATIENT REQUIRED TO BE FASTING? Yes 01/01/2025 2:57 PM CDT [facility] HAS THE PATIENT BEEN FASTING? Yes 01/01/2025 2:57 PM CDT [facility] GFR, ESTIMATED >60 >=60 01/01/2025 2:57 PM CDT [facility] Comment: Creatinine Clearance is the preferred criteria for selecting drug dose adjustments in renally impaired patients. The GFR is provided as additional pertinent clinical information. GFR is reported in mL/min/1.73 sq m. Calculation based on the Chronic Kidney Disease Epidemiology Collaboration (CKD- EPI) equation refit without adjustment for race. GFR, EST. >60 >=60 025 2:57 PM CDT [facility] GFR, EST. NONAFRICAN >60 >=60 01/01/2025 2:57 PM CDT [facility] Blood Venipuncture / Unknown 01/01/2025 8:44 AM CDT 01/01/2025 8:44 AM CDT us Vin [place] PAC CHEMISTRY ORDERABLES Final R esult [facility] [address] [facility] [place] [address] from Last 3 Months Insurance [facility] Care Teams Bench Shear Operator Relationship Specialty Start Date End Date Vin Lake, PAC [address] [place] [address] PCP - General Physician Block Sawyer 04/21/22
--- OUTSIDE RECORDS SUMMARY | 2025-03-11 09:10 | XMS_ITS | Encounter Summary ---
Author Organization [facility] Address [address] [place] [address] Phone Care Team Providers Care Asbestos Wire Finisher Name Role Phone Vin [place] Primary Care Provider [phone] Reason for Visit * Reason Comments Medication Refill Encounter Details Date Type Department Care Team (Late st Contact Info) Description 10/31/2023 [facility] [place] [address] [place] [address] Vin Lake PAC [address] [place] [address] Medication Refill Social History Tobacco [...] Telephone Encounter - Vin Lake PAC - 11/01/2023 7:26 AM CDT Refill approved. * Telephone Encounter - Osei Gallo, RN - 10/31/2023 8:34 AM CDT Medication failed the protocol, provider to review and approve the medication order if appropriate. Requested Prescriptions Pending Prescriptions Disp Refills hydrOXYzine (ATARAX) 25 MG Tablet [Pharmacy Med Name: hydrOXYzine HCl 25 MG Oral Tablet] 90 Tablet 0 Sig: TAKE 1 TABLET BY MOUTH EVERY 8 HOURS NEEDED FOR ANXIETY FOR UP TO 60 DAYS Not Delegated - Off Protocol Failed - 10/31/2023 8:04 AM Failed - This refill cannot be delegated Passed - Visit with relevant provider in past 12 months or upcoming 90 days Recent Visits Date Type Provider Dept 09/20/23 Office Visit Vin Lake, PAC [facility] 12/22/22 Office Visit Vin Lake, WILFRED [facility] Showing recent visits within past 365 days and meeting all other requirements Future Appointments Date Type Provider Dept 12/18/23 Appointment Lab, [facility] 12/25/[address] Vin Lake PAC [facility] Showing future appointments within next 90 days and meeting all other requirements documented in this encounter Plan of Treatment Upcoming Encounters Date Type Department Care Team (Late st Contact Info) Description 01/02/2026 8:00 AM CDT Lab [facility] [place] [address] [place] [id number] [facility] 01/09/2026 4:45 PM CDT Office Visit [facility] [place] [address] [place] [address] Vin Lake PAC [address] [place] [id number] documented as of this encounter Visit Diagnoses Diagnosis Anxiety Anxiety state, unspecified documented in this encounter Care Teams Asbestos Wire Finisher Relationship Specialty Start Date End Date Vin Lake, PAC [address] [place] [address] PCP - General Physician Care Transition Mgr 04/21/22 documented as of this encounter
--- OUTSIDE RECORDS SUMMARY | 2025-03-11 09:10 | XMS_ITS | Referral Summary ---
Author Organization [facility] Address [address] [place] [address] Care Team Providers Care Road Mechanic Name Role Phone Vin Lake Primary Care Provider [phone] Allergies No known active allergies Medications naproxen [...] Active Active Problems No known active problems Social History Tobacco Use Types Packs/Day Years [...] on file Legal Sex Male 9:04 AM BOILER TESTING TECHNICIAN Gender Identity Not on file Sexual Orientation Not on file Last Filed Vital Signs Vital Sign Reading Time Taken Comments Blood Pressure 165/87 07/10/2022 3:20 AM BOILER TESTING TECHNICIAN Pulse 72 07/10/2022 3:20 AM BOILER TESTING TECHNICIAN Temperature 37.1 C (98.8 F) 07/10/2022 3:20 AM BOILER TESTING TECHNICIAN Respiratory Rate 16 07/10/2022 3:20 AM BOILER TESTING TECHNICIAN Oxygen Saturation 100% 07/10/2022 3:20 AM BOILER TESTING TECHNICIAN Inhaled Oxygen Concentration - - Weight 79.4 kg (175 lb) 07/10/2022 3:20 AM BOILER TESTING TECHNICIAN Height 180.3 cm (5' 11) 07/10/2022 3:20 AM BOILER TESTING TECHNICIAN Body Mass Index 24.41 07/10/2022 3:20 AM BOILER TESTING TECHNICIAN Plan of Treatment Not on file Insurance [employer] Care Teams Road Mechanic Relationship Specialty Start Date End Date Vin Lake PA PCP - General Orthopedic Surgery 07/10/22
--- OUTSIDE RECORDS SUMMARY | 2025-03-11 09:11 | XMS_ITS | Encounter Summary ---
Author Organization [facility] Address [address] [place] [address] Phone Care Team Providers Care Bridge Painter Name Role Phone Vin Lake Primary Care Provider [phone] Reason for Visit * Reason Onset Date Comments Tick Bite 03/11/2025 Encounter Details Date Type Department Care Team (Late st Contact Info) Description 03/11/2025 Nurse Triage [facility] [address] [place] [address] Vin Lake, PAC [address] [place] [id number] Tick Bite Social History Tobacco Use Types Packs/Day Years Used Date Smoking Tobacco: Never Smokeless Tobacco: Never Alcohol Use Standard Drinks/Week Comments Not Currently 0 (1 standard drink = 0.6 oz pur e alcohol) [facility] Utilities Answer Date Recorded In the past 12 months has [employer], gas, oil, or water [employer] threatened to shut off services in your home? Patient declined 01/02/2025 Social Connection and Isolation Panel Answer Date Recorded In a typical week, how many times do you talk on the phone with family, friends, or neighbors? Patient declined 01/02/2025 How often do you get togethe r with friends or relatives? Patient declined 01/02/2025 How often do you attend latter day or restorationism serv ices? Patient declined 01/02/2025 Do you belong to any clubs o r organizations such as latter day groups, unions, fraternal or athletic groups, or [...] Total Score - Questions 1-9 17 12/13 [facility] - Occupational Stress [...] any time in the past 12 m [facility], were you homeless or living in a fci (including now)? Patient declined 01/02/2025 Sexually Active Control Partners Comments Yes Sex and Gender Information Value Date Recorded Sex Assigned at Not on file Legal Sex Male 9:23 AM CDT Gender Identity Not on file Sexual Orientation Not on file documented as of this encounter Miscellaneous Notes * Telephone Encounter - Nini Aguilar RN - 03/11/2025 8:01 AM CDT SITUATION: 29 y.o. with tick bite BACKGROUND: Patient contacting PCP office. Tick bite was 03/11/2025 Per chart review, VIVIAN 01/02/2025 ASSESSMENT: Symptom Description / Location: Attempted to remove the tick, was able to removed most of it but there are still pieces in the skin Located at back of right upper arm Size of apple seed Tick looked flat Unsure of type of tick Denies redness to site, rash Treatment / Response: neosporin, peroxide, rubbing alcohol with some relief. Caller denies pain. Denies fever. RECOMMENDATION: Caller agreeable to highest disposition listed: Go to Office or Video Visit Now. Care advice provided per triage guideline. Caller verbalized understanding. Due to office unavailability within disposition, advised for patient to be seen at prompt care or urgent care. Caller agreeable to prompt care/urgent care. Discussed utilizing [employer] to: find [facility] or [facility] - Reason for Disposition: Can't remove live tick (after using Care Advice) . Protocols Used: Tick Bite-A-OH See care advice and disposition for Guideline. First positive answer recorded, all responses to prior questions were negative. If symptoms increase, change or if new symptoms develop, call your health care provider or call back. Recommendations were based on caller information and is not a diagnosis. Verified and reviewed all triage information with caller. documented in this encounter Plan of Treatment Upcoming Encounters Date Type Department Care Team (Late st Contact Info) Description 01/02/2026 8:00 AM CDT Lab [facility] [address] [place] [phone] [facility] 01/09/2026 4:45 PM CDT Office Visit [facility] [address] [place] [address] Vin Lake PAC [address] [place] [address] documented as of this encounter Goals Goal Patient Goal Type Associated Problems Recent Progress Patient-Stated? Author Depression Behavioral Health On track(2023 10:32 AM STOCK HANDLER) Martha Baldwin, [facility] Note: Goal/Objective: Decrease depressive features. Anticipated Time [...] to prevent and or cope with depression. documented as of this encounter Visit Diagnoses Not on filedocumented in this encounter Additional Health Concerns Assessment Noted Time PHQ-9 Depression Total Score: 17 025 4:50 PM CDT documented as of this encounter Care Teams Bridge Painter Relationship Specialty Start Date End Date Vin Lake, PAC [address] [place] [phone] PCP - General Physician Stonemason Supervisor 04/21/22 documented as of this encounter
--- OUTSIDE RECORDS SUMMARY | 2025-03-11 09:11 | XMS_ITS | Encounter Summary ---
Author Organization [facility] Address [address] [place] [address] Phone Care Team Providers Care Principal Military Analyst Name Role Phone Vin Lake Primary Care Provider [phone] Reason for Visit * Reason Onset Date Comments Suicide Attempt 12/12/2024 Encounter Details Date Type Department Care Team (Late st Contact Info) Description 12/12/2024 Nurse Triage [facility] [address] [place] [address] [place] [address] [place] [phone] Suicide Attempt Social History Tobacco Use Types Packs/Day Years Used Date Smoking Tobacco: Never Smokeless Tobacco: Never Alcohol Use Standard Drinks/Week Comments Not Currently 0 (1 standard drink = 0.6 oz pur e alcohol) [facility] Utilities Answer Date Recorded In the past 12 months has [employer] electric, gas, oil, or water [employer] threatened to shut off services in your home? No 03/21/2024 Social Connection and Isolation Panel Answer Date Recorded In a typical week, how many times do you talk on the phone with family, friends, or neighbors? Twice a week 03/21/2024 How often do you get together with friends or re latives? Never 03/21/2024 How often do you attend sabianist or islam serv ices? Never 03/21/2024 Do you belong to any clubs o r organizations such as sabianist groups, unions, fraternal or athletic groups, or school groups? No 03/21/2024 How often do you attend meet ings of the clubs or organizations you belong to? Never 03/21/2024 Are you , , di vorced, , never , or living with a partner? Never 03/21/2024 AUDIT-C Answer Date Recorded Q1: How often do you have a drink containing alc ohol? Monthly or less 03/21/2024 Q2: How many drinks containi ng alcohol do you have on a typical day when you are drinking? 1 or 2 03/21/2024 Q3: How often do you have si x or more drinks on one occasion? Never 03/21/2024 Overall Financial Resource Strain (CARDIA) Answe r Date Recorded How hard is it for you to pa y for the very basics like food, housing, medical care, and heating? Somewhat hard 03/21/2024 PHQ-2 Answer Date Recorded Total Score - Questions 1-9 0 04/2024 [facility] - Occupational Stress Questionnaire Answer Date Recorded Do you feel stress - tense, restless, nervous, or anxious, or unable to sleep at night because your mind is troubled all the time - these days? Rather much 03/21/2024 Exercise Vital Sign Answer Date Recorde d On average, how many days pe r week do you engage in moderate to strenuous exercise (like a brisk walk)? 1 day 03/21/2024 On average, how many minutes do you engage in exercise at this level? 20 min 03/21/2024 Hunger Vital Sign Answer Date Recorded Within the past 12 months, y ou worried that your food would run out before you got the money to buy more. Never true 03/21/20 24 Within the past 12 months, t he food you bought just didn't last and you didn't have money to get more. Never true 03/21/2024 PRAPARE - Transportation Answer Date Re corded In the past 12 months, has l ack of transportation kept you from medical appointments or from getting medications? No 03/2024 In the past 12 months, has l ack of transportation kept you from meetings, work, or from getting things needed for daily living? No 03/21/2024 Housing Stability Vital Sign Answer Ancelmo e Recorded In the last 12 months, was t here a time when you were not able to pay the mortgage or rent on time? No 03/21/2024 In the past 12 months, how m any times have you moved where you were living? 0 03/21/2024 At any time in the past 12 m [facility], were you homeless or living in a half-way (including now)? No 03/21/2024 Sexually Active Control Partners Comments Yes Sex and Gender Information Value Date Recorded Sex Assigned at Not on file Legal Sex Male 9:23 AM CDT Gender Identity Not on file Sexual Orientation Not on file documented as of this encounter Miscellaneous Notes * Telephone Encounter - Bernie Poon RN - 12/13/2024 9:12 AM CDT Mother, Mary, phoned. Patient is with her and okay. She is going to encourage him to follow up in office. * Telephone Encounter - Bernie Poon RN - 12/13/2024 8:56 AM CDT Attempted to call patient, no answer at this time. Left message to call back. No PRD contacts listed. * Telephone Encounter - Bernie Poon RN - 12/13/2024 7:43 AM CDT Attempted to call patient, no answer at this time. Left message to call back. No PRD contacts listed. * Telephone Encounter - Vin Lake PAC - 12/12/2024 9:43 PM CDT If patient is having suicidal ideation, he would be best served in the ED. Would recommend this if patient is found and further recommendations are needed. * Telephone Encounter - Jossie Wilson RN - 12/12/2024 8:14 PM CDT SITUATION: Patient's mother calling. BACKGROUND: Patient's mother contacting PCP office. Caller is not listed as a personal compliance representative dealer designee on the most recent form. Just prior to calling this RN, patient made concerning statements (12/12/2024). ASSESSMENT: Symptom Description / Location: Patient has mentioned people picking on him Not socializing with friends now Stating he can't do anything right When leaving the house he said I don't know if I will be back or not & I just want to kill myself Drove off in his car He has made statements of harming himself before Patient's mother does not know where patient is currently since he left RECOMMENDATION: This RN attempted to call patient directly - no answer - left message for callback. Since we do notknow patient's whereabouts, advised for patient's mother to call 911 to possibly explain situation and give description of patient's car to see of anyone out patrolling sees him. Caller reports she will discuss this with patient's father. Requested for patient's mother to please call back if/when she has any updates. She verbalized understanding. Encounter routed to provider high priority to notify. - See care advice and disposition for Guideline. First positive answer recorded, all responses to prior questions were negative. If symptoms increase, change or if new symptoms develop, call your health care provider or call back. Recommendations were based on caller information and is not a diagnosis. Verified and reviewed all triage information with caller. Reason for Disposition Patient is threatening suicide now Protocols used: Suicide [id number] * Telephone Encounter - Ashley Loco - 12/12/2024 8:12 PM CDT Symptoms: Aggressive Behavior, Altered Mental Status Outcome: Transfer to mold burner queue Reason: Caller denied all higher acuity questions The caller accepted this outcome. Caller Denied: * Has a deadly weapon * Injured other people today * Attempted to injure other people today * Threatened to hurt other people today * Trouble walking * Caused by head injury * Started within the past 24 hours documented in this encounter Plan of Treatment Upcoming Encounters Date Type Department Care Team (Late st Contact Info) Description 01/02/2026 8:00 AM CDT Lab [facility] [address] [place] [address] [facility] 01/09/2026 4:45 PM CDT Office Visit [facility] [address] [place] [phone] Vin Lake, WILFRED [address] [place] [address] documented as of this encounter Goals Goal Patient Goal Type Associated Problems Recent Progress Patient-Stated? Author Depression Behavioral Health On track(2023 10:32 AM CARD GAME OPERATOR) Martha Baldwin, [facility] Note: Goal/Objective: Decrease depressive features. Anticipated Time Frame for Goal Completion: 6 months Goal Reviewed with: patient Readiness to change: Thinking about making a change Department associated with goal: [facility] Steps to achieve [...] Assessment Noted Time PHQ-9 Depression Total Score: 0 04/22/20 24 2:35 PM CDT documented as of this encounter Care Teams Principal Military Analyst Relationship Specialty Start Date End Date Vin Lake, PAC [address] [place] [phone] PCP - General Physician Transitions Manager 04/21/22 documented as of this encounter
== END 2025-03-11 09:34 | disposition home or self-care (01) ==
PROVIDERS: Emergency Provider Nurse Practitioner
DX: S40.862A Insect bite (nonvenomous) of left upper arm, initial encounter (principal); W57.XXXA Bitten or stung by nonvenomous insect and other nonvenomous arthropods, initial encounter
CPT/HCPCS: 99213; G0463

== ENCOUNTER 2025-08-01 08:16 | Emergency (ER) | payer BC, SELFPAY ==
--- NOTE | 2025-08-01 08:19 | ED_ITS ---
HPI - URI/Sore Throat General Chief Complaint: Upper Respiratory Infection Stated Complaint: Cough/Chills Time Seen by Provider: 08/01/25 08:28 Source: patient, RN notes reviewed and old records reviewed Mode of arrival: ambulatory Limitations: no limitations History of Present Illness HPI Narrative: 30-year-old male presents to the [facility] with 2 day history of cough, chills, body aches. States symptoms started Monday. Has tried [id number]-[id number] cold medicine. Has had chills with no measured fever. Treatments prior to arrival: cold medicine Related Data Home Medications ?Medication ?Instructions ?Recorded ?Confirmed ?Last Taken ?Type fluoxetine 20 mg capsule mg 08/01/25 Unknown History Allergies Allergy/AdvReac Type Severity Reaction Status Date / Time No Known Allergies Allergy Verified 08/01/25 08:29 Review of Systems Review of Systems: All systems reviewed & are unremarkable except as noted in HPI and below Constitutional: Constitutional: Reports as per HPI, Reports body ache(s) and Reports chills ENT: Reports system reviewed and no additional complaints, except as documented Cardiovascular: Cardiovascular: Reports no additional cardiovascular complaints, Denies chest pain and Denies dyspnea Respiratory: Respiratory: Reports as per HPI, Denies chest congestion, Reports cough and Denies dyspnea Musculoskeletal: Musculoskeletal: Reports no additional musculoskeletal complaints Integumentary/Breasts: Skin/Breast: Reports system reviewed and no additional complaints, except as docu PMFSH Social History Social History Substance use type: does not use Comments At the time of my signature, I reviewed and agree with the nursing past medical, surgical, social, and family history. There is no relevant family history pertinent to the patient complaint. Exam Const: General: cooperative, no acute distress, well developed, alert, tired appearing, uncomfortable and well nourished Nutritional Appearance: well nourished Orientation/consciousness: patient oriented x3 Limitations: no limitations HENMT: Head: normal to inspection Ears: hearing grossly normal bilaterally, external ears normal, TM's normal bilaterally, EAC's normal, mastoids normal and no periauricular adenopathy Face and sinus: normal facial exam, sinuses nontender and face symmetric Mouth: Yes Normal oral and palatal mucosa present, Yes lip normal, Yes tongue normal and Yes moist mucous membranes abnormal Throat: posterior oropharynx normal, uvula midline and no uvular edema Eyes: General: appearance normal, both eyes and all related structures Alignment and Position: alignment normal Neck: Neck: normal visual inspection, full ROM, no lymphadenopathy and no meningeal signs Chest: Chest palpation & inspection: normal inspection of the chest Resp: Effort & Inspection: normal respiratory effort and able to speak in complete sentences Auscultation: clear to auscultation bilaterally, no crackles, no rales, no rhonchi and no wheezes Cardio: Rate: regular rate Skin: General skin exam: normal color and no rashes or lesions noted Neuro: General: patient oriented x3, gait normal, moves all extremities and no meningeal signs Cognition (Neuro): normal cognition Speech: normal speech Gait exam (Neuro): Normal gait present Extrem: General: normal to inspection, full ROM, capillary refill normal and normal gait Psych: Appearance: grossly normal and well kempt Mental Status: mental status grossly normal Speech and movement: Normal speech and movement present and Clear speech present Affect: normal affect Attitude: cooperative Course Course Level of Care: Express Care Visit Vital Signs Vital signs: Vital Signs Temperature 97.2 F L 08/01/25 08:25 Pulse Rate 112 H 08/01/25 08:25 Respiratory Rate 16 08/01/25 08:25 Blood Pressure 139/83 08/01/25 08:25 Pulse Oximetry 98 08/01/25 08:25 Oxygen Delivery Room Air 08/01/25 08:25 Temperature 97.2 F L 08/01/25 08:25 Pulse Rate 112 H 08/01/25 08:25 Respiratory Rate 16 08/01/25 08:25 Blood Pressure 139/83 08/01/25 08:25 Pulse Oximetry 98 08/01/25 08:25 Oxygen Delivery Room Air 08/01/25 08:25 reviewed MDM MDM Narrative Medical decision making narrative: Patient sitting in exam room. Patient with 2 day history of URI symptoms. Patient is nontoxic, vitals are stable. Patient is flu A positive. Flu B and COVID negative patient is appropriate for outpatient treatment with close follow-up Discharge instructions reviewed with patient, as well as provided in writing per nursing staff. The instructions also include specific and strict return/GO TO THE ER as well as f/u information. All questions have been answered, and the patient deny any further questions with discharge and discharge plan. Some parts of this dictation were generated by voice recognition software and may contain typographical and/or grammatical inaccuracies. Differential Diagnosis Differential Diagnosis: Differential diagnostic considerations for upper respiratory infection include upper respiratory infection, croup, otitis media, sinusitis, viral infection, bronchitis, influenza, pharyngitis, strep, uvulitis.? Medical Records I have reviewed the following patient records and this information was taken into consideration when formulating the assessment and plan.: previous ER visits and previous clinic visits Lab Data Labs: Lab Results 08/01/25 Range/Units 08:35 POC Influenza A Ag Positive (Negative) POC Influenza B Ag Negative (Negative) POC SARS CoV-2 Ag Negative (Negative) reviewed Discharge Plan Discharge Clinical Impression: Influenza A Patient Disposition: Home Condition: Stable Instructions: Influenza (DC) Additional Instructions: Your rapid strep swab was negative today at [facility]. A throat culture will be sent to the laboratory for further testing. If the test is positive, you will receive a phone call within 48 hours and an appropriate antibiotic will be initiated at that time. Your rapid COVID test were negative Your rapid flu test was negative Your symptoms are likely due to a viral illness, which is not treated with antibiotics. Typically viral infections last 7-10 days, can linger for couple of weeks. It is very important to treat your symptoms. Drink plenty of water, Gatorade, Pedialyte, ice pops or Jell-O. -Alternate Tylenol and Motrin per package directions for fever or pain. You can alternate every 4 hours -Antihistamine medication such as Zyrtec/Claritin/Jamila during the day can help improve symptoms. -doing daily nasal irrigations can help relieve pressure your sinuses. Things like a Neti pot -Use Flonase twice a day for 5 days then daily to help reduce the inflammation and dry up your sinuses. -You can also use Mucinex. Be sure to drink plenty of water with this medication at least 8 ounces with every dose and it is important to drink 8 to 10 glasses of water per day. Water is a natural decongestant -Eat and drink things that are easy to swallow, like tea or soup, or popsicles. -Oral rinses such as: Salt water gargles and/or may use topical anesthetic (eg. Chloraseptic spray) or lozenges to relieve dryness or throat pain). -Frequent hand washing or hand business integration analyst is one of the best ways to prevent spread of infection. -Using a vaporizer or humidifier at night will also help thin secretions and help with coughing up phlegm. -Follow up with primary care provider in 7-10 days if condition is not improving - For new or worsening symptoms go directly to the nearest ER Patient Language: Dutch Prescriptions: No Action fluoxetine 20 mg capsule Follow-up/Referrals: UNKNOWN,DOCTOR [Primary Care Provider] Stand Alone Forms: Work/School Release IP Time of Disposition: 08:34
--- OUTSIDE RECORDS SUMMARY | 2025-08-01 08:24 | XMS_ITS | Clinical Summary ---
Author Organization [facility] Address [address] [place] [address] Phone Care Team Providers Care Process Owner Name Role Phone Vin Lake Primary Care Provider Allergies No known active allergies Medications FLUoxetine (PROzac) 20 MG Capsule Take 20 mg by mouth daily. 03/21/2025 Active Active Problems Problem Noted Date Diagnosed Date MDD (major depressive disord er), recurrent episode, moderate 02/22/2024 STEFFI (generalized anxiety disorder) 06/02/2022 Depressive disorder 03/26/2010 Immunizations Immunization Administration Dates Next Due DTAP [...] drink = 0.6 oz pur e alcohol) [facility] Utilities Answer Date Recorded In the past 12 months has e electric, gas, oil, or water company threatened to shut off services in your home? Patient declined 01/02/2025 Social Connection and Isolation Panel Answer Date Recorded In a typical week, how many times do you talk on the phone with family, friends, or neighbors? Patient declined 01/02/2025 How often do you get togethe r with friends or relatives? Patient declined 01/02/2025 How often do you attend pentecostal or jainism serv ices? Patient declined 01/02/2025 Do you belong to any clubs o r organizations such as pentecostal groups, unions, fraternal or athletic groups, or [...] Total Score - Questions 1-9 17 12/13 [facility] [place] of Occupat ional Health - Occupational Stress [...] any time in the past 12 m [facility], were you homeless or living in a long-term (including now)? Patient declined 01/02/2025 Sexually Active Control Partners Comments Yes Sex and Gender Information Value Date Recorded Sex Assigned at Not on file Legal Sex Male 9:23 AM CDT Gender Identity Not on file Sexual Orientation Not on file Last Filed Vital Signs Vital Sign Reading Time Taken Comments Blood Pressure 132/80 03/27/2025 3:06 PM CDT Pulse 78 03/27/2025 3:06 PM CDT Temperature 36.5 C (97.7 F) 03/27/2025 3:06 PM CDT Respiratory Rate 12 03/27/2025 3:06 PM CDT Oxygen Saturation 98% 03/27/2025 3:06 PM CDT Inhaled Oxygen Concentration - - Weight 71.2 kg (157 lb) 03/27/2025 3:06 PM CDT Height 180.3 cm (5' 11) 01/04/2024 4:22 PM CDT Body Mass Index 21.9 01/04/2024 4:22 PM CDT Plan of Treatment Upcoming Encounters Date Type Department Care Team (Late st Contact Info) Description 01/02/2026 8:00 AM CDT Lab [facility] - [place] [address] [place] [address] 01/09/2026 4:45 PM CDT Office Visit [facility] - [place] [address] [place] [address] Vin Lake PAC [address] [place] [address] Health Maintenance Due Date Last Done Comments Hepatitis C Virus (HCV) Screening 1994 Influenza Immunization (#1) 2025 09/0 04/2024, 06/18/2019, 04/25/2018 SARS-COV-2 Immunization ( season) 2025 09/05/2024, 03/11/2021, 02/18/2021 DTaP/Tdap/Td Immunization (8 - Td or Tdap) 12/15/2027 12/14/2017, 02/13/2007, 03/16/1998, Additional history exists Respiratory Syncytial Virus (RSV) Immunization (Adult) (1 - 1-dose 75+ series) 2069 Hepatitis B Immunization Completed 995, 1994, 1994 Varicella Immunization Completed 02/13/2007, 1995 Meningococcal Immunization (ACWY) Aged Out 02/12/2008 No longer eligible based on patient's age to complete this topic TdaP Immunization Discontinued 12/14/2017, 02/13/2007 Human Papillomavirus (HPV) Immunization (No Doses Required) Completed Pneumococcal Immunization Combined Aged Out No longer eligible based on patient's age to complete this topic Rotavirus Immunization Aged Out No lo nger eligible based on patient's age to complete this topic Goals Goal Patient Goal Type Associated Problems Recent Progress Patient-Stated? Author Depression Behavioral Health On track(2023 10:32 AM ROSS FURNACE OPERATOR) No Martha Makc, [facility] Note: Goal/Objective: Decrease depressive features. Anticipated Time Frame for Goal Completion: 6 months Goal Reviewed with: patient Readiness to change: Thinking about making a change Department associated with goal: [facility] Steps to achieve goal: [...] to prevent and or cope with depression. Insurance [facility] Care Teams Process Owner Relationship Specialty Start Date End Date Vin Lake, W[place]FR[place] [address] [place] [address] PCP - General Physician Panama Hat Hydraulic Press Operator 04/21/22 NIVIA MORRIS NP Nurse Practitioner Psychiatry 03/27/25
--- OUTSIDE RECORDS SUMMARY | 2025-08-01 08:24 | XMS_ITS | Patient Health Record ---
Author Organization [facility] [employer] Address [address] [facility] [[email or web address] [address] [place] [address] Care Team Providers Care Ict Support And Test Engineers Name Role Phone Vin Lima Primary Care Provider Neal Alvarez Unavailable [phone] Allergies No Known Allergies Reason For Referral No Information Medications Medication SIG (Take, Route, Frequency, Duration) Notes Start Date End Date Status FLUoxetine HCl 20 MG Capsule 1 tablet Orally Once a day; Duration: 90 days 03/21/2025 Active FLUoxetine HCl 20 MG Capsule 1 capsule Orally Once a day 03/21/2025 Active Social History Tobacco Use: Social History Observation Description Date Details (start date - stop date) Never Smoker NA - NA Sex Assigned At : Social History Observation Description Sex Assigned At Male Social History Miscellaneous: Social Info Question Answer Notes Safety issues: Do you feel safe at home? Yes Are there any firearms in the house? No Social History Social Info Question Answer Notes Household: Marital Status: Single Number of Adults in household: 2 Number of Children in Household: 0 Level of Education: Finished College Household: Social Info Question Answer Notes Household Marital status: single Number of adults in household: 2 Number of children in household: 0 Level of education: finished college Drug/Alcohol: Social Info Question Answer Notes Drugs Have you used drugs other than those for medical reasons in the past 12 months? No AUDIT-C (Standard) Did you have a drink containing alcohol in the past year? Yes How often did you have a drink containing alcohol in the past year? 2 to 4 times a month (2 points) How many drinks did you have on a typical day when you were drinking in the past year? 1 or 2 drinks (0 point) How often did you have six or more drinks on one occasion in the past year? Never (0 point) Points 2 Interpretation Negative Tobacco Use: Social Info Question Answer Notes Tobacco Control (Standard) Tobacco use: Nonsmoker Additional Details Category Social Info Options Details Miscellaneous: Occupation: [employer] Drug/Alcohol: Do you smoke marijuana? Den ies Problems Problem Type SNOMED Code ICD Code Onset Dates Problem Status W/U Status Risk Notes Problem Severe recurrent major depression without psychotic features (61139229) Severe episode of recurrent major depressive disorder, without psychotic features (F33.2) Active confirmed Vital Signs Heart Rate 98 /min 03/21/2025 Blood pressure diastolic 92 mm Hg 03/21/2025 Weight-kg 71.4 kg 03/21/2025 Blood pressure systolic 129 mm Hg 03/21/2025 Weight 157.4 lbs 03/21/2025 Encounters Encounter Location Date Provider Diagnosis [employer] [address] [address] 03/21/2025 Neal Clubb Severe episode of recurrent major depressive disorder, without psychotic features F33.2 ; Encounter for screening for cardiovascular disorders Z13.6 and Dietary counseling and surveillance Z71.3 [employer] [facility] [address] [address] 05/21/2025 Neal Clubb [employer] [address] [address] 04/16/2025 Neal Clubb [employer] [address] [address] 04/16/2025 Neal Clubb Severe episode of recurrent major depressive disorder, without psychotic features F33.2 [employer] [facility] [address] [address] 05/05/2025 Neal Clubb Assessments Encounter Date Diagnosis (ICD Code) Assessment Notes Treatment Notes Treatment Clinical Notes Section Notes 03/21/2025 Severe episode of recurrent major depressive disorder, without psychotic features (ICD-10 - F33.2) 04/16/2025 Severe episode of recurrent major depressive disorder, without psychotic features (ICD-10 - F33.2) 03/21/2025 Encounter for screening for cardiovascular disorders (ICD-10 - Z13.6) 03/21/2025 Dietary counseling and surveillance (ICD-10 - Z71.3) 03/21/2025 Other Fluoxetine material was printed Learning About Depression Screening material was printed 1. Major Depressive Disorder, recurrent - Patient reports a history of depression since teenage years, persistent for over 10 years - Current episode: low mood, loss of interest, feelings of worthlessness, fatigue, difficulty concentrating, sleep disturbances - Patient rates current depression at 5/10 - Recent stressor: loss of father in November 2024 - Previous trials: sertraline 25mg, hydroxyzine 25mg, possibly lamotrigine (limited recall of efficacy), possibly lexapro. - No current suicidal ideation or history of self-harm behaviors reported Plan: a. Initiate fluoxetine (Prozac) - Discussed SSRI mechanism, timeline for effects - Informed about potential side effects - Advised about black box warning for increased suicidal thoughts b. Instructed patient to download messaging rubio for direct communication c. Provided printed information about prescribed medication d. Discussed follow-up options and importance of maintaining communication 2. Generalized Anxiety Disorder - Patient reports excessive worry causing distress - Current anxiety rated at 5/10 - Occasional panic attacks or nervous breakdowns, most recent a couple weeks ago - Anxiety interferes with social interactions Plan: a. Monitor anxiety symptoms with fluoxetine treatment b. Encourage patient to report changes in anxiety levels or frequency of panic attacks 3. Grief - Patient experiencing grief following recent loss of father in November 2024 - Contributing to current depressive episode and may impact overall functioning and mood Plan: a. Monitor grief symptoms and their impact on overall mental health Follow-up: - Discussed follow-up options and importance of maintaining communication, especially if experiencing side effects Plan Of Treatment No Information Insurance Providers Payer Name Payer Address Payer Phone Subscriber Number Group Number Insured Name Patient Relationship to Insured Coverage Start Date Coverage End Date [facility] [address] [place] [address] [id number] ALEX MARIA R Self - patient is the insured Medical (General) History Medical History History ICD Code abdominal aortic aneurysm: No atrial fibrillation: No chronic fatigue syndrome: No essential tremor: No hyperlipidemia: No hypertension: No Parkinson's disease: No restless leg syndrome: No stroke: No subdural hematoma: No type 1 diabetes mellitus: No type 2 diabetes mellitus: No vitamin B12 deficiency: No vitamin D deficiency: No Surgical History Surgery Date(Month/Year) denied Hospitalization History Reason Date(Month/Year) denied
--- OUTSIDE RECORDS SUMMARY | 2025-08-01 08:24 | XMS_ITS | Encounter Summary ---
Author Organization [facility] Address [address] [place] [address] Phone Care Team Providers Care Automotive Parts Advisor Name Role Phone Vin Lake Primary Care Provider [phone] Reason for Visit * Reason Comments Medication Refill Encounter Details Date Type Department Care Team (Late st Contact Info) Description [facility]/20[facility] [place] [address] [place] [address] Vin Lake PAC [address] [place] [address] Medication Refill Social History Tobacco [...] Refill approved. * Telephone Encounter - Osei Gallo RN - 10/31/2023 8:34 AM CDT Medication [...] Provider Dept 09/20/23 Office Visit Vin Lake, WILFRED [facility] 12/22/22 Office Visit Vin Lake PAC [facility] Showing recent visits within past 365 days and meeting all other requirements Future Appointments Date Type Provider Dept 12/18/23 Appointment Lab [facility] 12/25/23 Appointment Vin Lake PAC [facility] Showing future appointments within next 90 days and meeting all other requirements documented in this encounter Plan of Treatment Upcoming Encounters Date Type Department Care Team (Late st Contact Info) Description 01/02/2026 8:00 AM CDT Lab [facility] - [place] [address] [place] [address] 01/09/2026 4:45 PM CDT Office Visit [facility] - [place] [address] [place] [address] Vin Lake PAC [address] [place] [address] documented as of this encounter Visit Diagnoses Diagnosis Anxiety Anxiety state, unspecified documented in this encounter Additional Health Concerns Infection Onset Date Last Indicated Resolved Time COVID - 19 03/27/2025 03/27/2025 03/27/2025 3:32 PM CDT documented as of this encounter Care Teams Automotive Parts Advisor Relationship Specialty Start Date End Date Vin Lake, PAC [address] [place] [address] PCP - General Physician At Home Independent Call Center Agent 04/21/22 NIVIA MORRIS NP Nurse Practitioner Psychiatry 03/27/25 documented as of this encounter
--- OUTSIDE RECORDS SUMMARY | 2025-08-01 08:24 | XMS_ITS | Encounter Summary ---
Author Organization [facility] Address [address] [place] [address] Phone Care Team Providers Care Master Ocean Name Role Phone Vin Lake Primary Care Provider [phone] Reason for Visit * Reason Comments Medication Refill Encounter Details Date Type Department Care Team (Late st Contact Info) Description 02/01/2023 [facility] - [place] [address] [place] [address] Vin Laek PAC [address] [place] [address] Medication Refill Social History Tobacco [...] Dept 12/22/22 Office Visit Vin Lake, WILFRED [facility] 07/13/22 Office Visit Vin Lake, WILFRED [facility] 06/02/22 Office Visit Vin Lake, WILFRED [facility] 04/21/22 Office Visit Vin Lake, WLIFRED [facility] Showing recent visits within past 365 days and meeting all other requirements Future Appointments No visits were found meeting these conditions. Showing future appointments within next 90 days and meeting all other requirements documented in this encounter Plan of Treatment Upcoming Encounters Date Type Department Care Team (Late st Contact Info) Description 01/02/2026 8:00 AM CDT Lab [facility] - [place] [address] [place] [address] 01/09/2026 4:45 PM CDT Office Visit [facility] - [place] [address] [place] [id number] Vin Lake PAC [address] [place] [address] documented as of this encounter Visit Diagnoses Diagnosis Anxiety Anxiety state, unspecified documented in this encounter Additional Health Concerns Infection Onset Date Last Indicated Resolved Time COVID - 19 03/27/2025 03/27/2025 03/27/2025 3:32 PM CDT documented as of this encounter Care Teams Master Ocean Relationship Specialty Start Date End Date Vin Lake, PAC [address] [place] [address] PCP - General Physician Bridge Game Director 04/21/22 NIVIA MORRIS NP Nurse Practitioner Psychiatry 03/27/25 documented as of this encounter
--- OUTSIDE RECORDS SUMMARY | 2025-08-01 08:24 | XMS_ITS | Encounter Summary ---
Author Organization [facility] Address [address] [place] [address] Phone Care Team Providers Care Baton Teacher Name Role Phone Vin Lake Primary Care Provider [phone] Reason for Visit * Reason Comments Medication Refill Encounter Details Date Type Department Care Team (Late st Contact Info) Description 09/14[facility]20[facility] [place] [address] [place] [address] Vin Lake PAC [address] [place] [address] Medication Refill Social History Tobacco [...] 09/14/2022 5:20 PM CST Rx request approved. HER HELPER * Telephone Encounter - Brandi Pettit RN [...] 07/13/22 Office Visit Vin Lake, PAC [facility] [address] 06/02/22 Office Visit Vin Lake, PAC [facility] [address] 04/21/22 Office Visit Vin Lake, PAC [facility] [address] 11/23/21 Office Visit Sanam Pineda, PAC [facility] Showing recent visits within past 365 days and meeting all other requirements Future Appointments Date Type Provider Dept 12/01/22 Appointment Vin Lake, PAC [facility] [place] [facility] Showing future appointments within next 90 days and meeting all other requirements HER HELPER documented in this encounter Plan of Treatment Upcoming Encounters Date Type Department Care Team (Late st Contact Info) Description 01/02/2026 8:00 AM CDT Lab [facility] [place] [address] 01/09/2026 4:45 PM CDT Office Visit [facility] [place] [phone] Vin Lake, WILFRED [address] [place] [address] documented as of this encounter Visit Diagnoses Diagnosis Anxiety Anxiety state, unspecified documented in this encounter Additional Health Concerns Infection Onset Date Last Indicated Resolved Time COVID - 19 03/27/2025 03/27/2025 03/27/2025 3:32 PM CDT documented as of this encounter Care Teams Baton Teacher Relationship Specialty Start Date End Date Vin Lake, PAC [address] [place] [address] PCP - General Physician Dress Operator 04/21/22 NIVIA MORRIS NP Nurse Practitioner Psychiatry 03/27/25 documented as of this encounter
--- OUTSIDE RECORDS SUMMARY | 2025-08-01 08:24 | XMS_ITS | Encounter Summary ---
Author Organization [facility] Address [address] [place] [address] Phone Care Team Providers Care Odd Shoe Examiner Name Role Phone Vin Lake Primary Care Provider Reason for Visit * Reason Onset Date Comments Suicide Attempt 12/12/2024 Encounter Details Date Type Department Care Team (Late st Contact Info) Description 12/12/2024 Nurse Triage [facility] [address] [place] [address] Vin Lake, PAC [address] [place] [address] Suicide Attempt Social History Tobacco Use Types Packs/Day Years Used Date Smoking Tobacco: Never Smokeless Tobacco: Never Alcohol Use Standard Drinks/Week Comments Not Currently 0 (1 standard drink = 0.6 oz pur e alcohol) [facility] Utilities Answer Date Recorded In the past 12 months has [employer] electric, gas, oil, or water company threatened [...] Never 03/21/2024 How often do you attend islam or religion serv ices? Never 03/21/2024 Do you belong to any clubs o r organizations such as islam groups, unions, fraternal or athletic groups, or [...] Total Score - Questions 1-9 0 04/2024 [facility] of Occupat ional Health - Occupational [...] any time in the past 12 m [facility], were you homeless or living in a long term (including now)? No 03/21/2024 Sexually Active Control [...] Caller is not listed as a personal patient support representative designee on the most recent form. Just [...] is threatening suicide now Protocols used: Suicide [id number]-B-OY * Telephone Encounter - Ashley Loco 12/12/2024 8:12 PM CDT Symptoms: Aggressive Behavior, Altered Mental Status Outcome: Transfer to backwinder queue Reason: Caller denied all higher acuity [...] Info) Description 01/02/2026 8:00 AM CDT Lab [facility] - [place] [address] [place] [address] 01/09/2026 4:45 PM CDT Office Visit [facility] - [place] [address] [place] [address] Vin Lake, W[place]FRED [address] [place] [phone] documented as of this encounter Goals Goal Patient Goal Type Associated Problems Recent Progress Patient-Stated? Author Depression Behavioral Health On track(2023 10:32 AM AUDIOPROSTHOLOGIST) No Martha Mack, [facility] Note: Goal/Objective: Decrease depressive features. Anticipated Time Frame for Goal Completion: 6 months Goal Reviewed with: patient Readiness to change: Thinking about making a change Department associated with goal: [facility] Steps to achieve [...] filedocumented in this encounter Additional Health Concerns Infection Onset Date Last Indicated Resolved Time COVID - 19 03/27/2025 03/27/2025 03/27/2025 3:32 PM CDT Assessment Noted Time PHQ-9 Depression Total Score: 0 04/22/20 24 2:35 PM CDT documented as of this encounter Care Teams Odd Shoe Examiner Relationship Specialty Start Date End Date Vin Lake, [facility] [address] [place] [phone] PCP - General Physician Nurse Obgyn 04/21/22 NIVIA MORRIS NP Nurse Practitioner Psychiatry 03/27/25 documented as of this encounter
--- OUTSIDE RECORDS SUMMARY | 2025-08-01 08:24 | XMS_ITS | Clinical Summary ---
Author Organization [facility] Address [address] [place] [address] Care Team Providers Care Pit Furnace Melter Name Role Phone Vin Lake Primary Care Provider [phone] Allergies No known active allergies Medications naproxen [...] on file Legal Sex Male 9:04 AM HAZARDOUS WASTE MANAGEMENT SPECIALIST Gender Identity Not on file Sexual Orientation Not on file Last Filed Vital Signs Vital Sign Reading Time Taken Comments Blood Pressure 165/87 07/10/2022 3:20 AM HAZARDOUS WASTE MANAGEMENT SPECIALIST Pulse 72 07/10/2022 3:20 AM HAZARDOUS WASTE MANAGEMENT SPECIALIST Temperature 37.1 C (98.8 F) 07/10/2022 3:20 AM HAZARDOUS WASTE MANAGEMENT SPECIALIST Respiratory Rate 16 07/10/2022 3:20 AM HAZARDOUS WASTE MANAGEMENT SPECIALIST Oxygen Saturation 100% 07/10/2022 3:20 AM HAZARDOUS WASTE MANAGEMENT SPECIALIST Inhaled Oxygen Concentration - - Weight 79.4 kg (175 lb) 07/10/2022 3:20 AM HAZARDOUS WASTE MANAGEMENT SPECIALIST Height 180.3 cm (5' 11) 07/10/2022 3:20 AM HAZARDOUS WASTE MANAGEMENT SPECIALIST Body Mass Index 24.41 07/10/2022 3:20 AM HAZARDOUS WASTE MANAGEMENT SPECIALIST Plan of Treatment Not on file Insurance [employer] Care Teams Pit Furnace Melter Relationship Specialty Start Date End Date Vin Lake PA PCP - General Orthopedic Surgery 07/10/22
[2025-08-01 08:25] VITALS: BP 139/83; PULSE 112; RESP 16; TEMP 36.2; O2SAT 98
--- OUTSIDE RECORDS SUMMARY | 2025-08-01 08:26 | XMS_ITS | Data Portability ---
Author Organization [place] [facility]- Address # [address] [place] [address] Assessment Encounter Date Assessment Date Assessment LastModified [...] to return here after he returns from [place] if that occurs. Not available 03/14/2011 02:04:52 [...] Surgeries None recorded. Imaging tympanogram [address], 4 [facility] Ambrocio [place], [place], [address], 3 03:32:41 Medication Orders Celexa 40 mg [...] Right Type B Curve Flat Not Available [address] [place], [place], [address], 08/27/2012 19:21:33 08/27/19 13 08/27/2012 joslyn jackson Left Type A Normal Not Available [address] [place], [place], [address], 08/27/2012 19:21:33 12/13/19 12 12/12/2011 imagi lizandro/john baldwin tic resul t No observ ation record ed. [address] [place], [address], 03/08/2013 03:29:33 Result Notes None recorded. Problems Name Problem SNOMED Code Status Onset Date Resolution Date Notes Provider Name and Address Organization Details Recorded Time Joint pain in ankle and foot Active Not Available [facility] 3 03:02:37 Sudden hearing loss 21942506 Active Not Available [facility] 3 03:02:37 Contusion of ankle 14120753 Active Not Available [facility] 3 03:03:03 Objective tinnitus 25051540 Active Not Available [facility] 3 03:02:37 Otalgia 88042200 Active Not Available [facility] 3 03:02:37 Impacted cerumen 47127223 Active Not Available [facility] 3 03:02:37 Contusion of foot 86125911 Active Not Available [facility] 3 03:03:03 Depressive disorder 00229428 Active 010 Not Available [facility] 3 03:02:37 Problem Notes None recorded. Procedures Surgical History Date Name Laterality Status Provider Name and Address Organization Details Recorded Time 08/27/19 13 Cerumen Removal w/ instrumentation completed Arabella Bain MD [address] [place] [address] [address], [place], [address], [facility], 08/27/2012 19:21:33 Imaging Results None recorded. [...] Details Last Updated DateTime 3 170.815 cm 27372.1 607 g 17.1 kg/m2 20 /min 98.4 [degF] 96 /min 112/64 mm[Hg] Breanna Quinones [facility], 3 15:02:14 Date Recorded Body height Body weight Body mass index (BMI) Respiratory rate Body temperature Heart rate Systolic And Diastolic Provider Name and Address Organization Details Last Updated DateTime 2 172.72 cm 87559.1 29790 g 17.9 kg/m2 16 /min 99.6 [degF] 68 /min 132/90 mm[Hg] SAMUEL Silver [address], [address] [place] [address] [facility], 2 12:18:45 Date Recorded Body weight Respiratory rate Body temperature Heart rate Systolic And Diastolic Provider Name and Address Organization Details Last Updated DateTime 1 93569.3 3943 g 16 /min 99.8 [degF] 60 /min 116/84 mm[Hg] [facility], 1 13:18:38 Date Recorded Body weight Respiratory rate Body temperature Heart rate Systolic And Diastolic Provider Name and Address Organization Details Last Updated DateTime 0 33662.8 9365 g 18 /min 98.6 [degF] 60 /min 148/98 mm[Hg] [facility], 0 09:26:56 Social History None recorded. Functional Status None recorded. Mental Status None recorded. Family History Nothing Reported. Medical History Condition Response Diabetes N Other Developmental Delay N Bedwetting N ER or UC Visits N Frequent Ear Infections N Skin problems N Nasal Allergies N Asthma / Wheezing N Frequent Headaches N Hospitalizations N ADD or ADHD N Broken bones N Allergies N ear or hearing problems N Sleep Problems / Snoring N Concerns with Hearing or Vision N Constipation N Murmur / Cardiac N Albuterol / Nebulizer N Serious Injuries N History of UTI N Immunizations Vaccine Type Date Status Note Provider Nam e and Address Organization Details Recorded Time OPV, trivalent 4 completed Not Available [facility] 06/29/2011 06:14:11 Hep B, unspecified formulation 5 completed Not Available [facility] 06/29/2011 06:14:11 DTaP-Hib 5 completed Not Available [facility] 06/29/2011 06:14:11 OPV, trivalent 5 completed Not Available [facility] 06/29/2011 06:14:11 Hep B, unspecified formulation 4 completed Not Available [facility] 06/29/2011 06:14:11 MMR 5 completed Not Available [facility] 06/29/2011 06:14:11 DTaP-Hib 5 completed Not Available [facility] 06/29/2011 06:14:11 varicella 6 completed Not Available [facility] 06/29/2011 06:14:11 OPV, trivalent 5 completed Not Available [facility] 06/29/2011 06:14:11 DTaP-Hib 4 completed Not Available [facility] 06/29/2011 06:14:11 DTaP, unspecified formulation 8 completed Not Available [facility] 06/29/2011 06:14:11 DTaP-Hib 4 completed Not Available [facility] 06/29/2011 06:14:11 MMR 8 completed Not Available [facility] 06/29/2011 06:14:11 Hep B, unspecified formulation 4 completed Not Available [facility] 06/29/2011 06:14:11 OPV, trivalent 4 completed Not Available [facility] 06/29/2011 06:14:11 meningococcal MPSV4 8 completed Not Available [facility] 06/29/2011 06:14:11 Tdap 7 completed Not Available [facility] 06/29/2011 06:14:11 varicella 7 completed Not Available [facility] 06/29/2011 06:14:11 Past Encounters Encounter ID Performer Location Encounter Start Date Encounter Closed Date Diagnosis/Indication Diagnosis SNOMED-CT Code Diagnosis ICD10 Code Diagnosis IMO Codes Diagnosis Note [id number] [facility]ain [facility] [address] [place] [address],[address] [address] 03/26/2010 08:56:40 03/26/2010 09:17:54 [id number] Arabella Bain [facility] [address] [place] [address],[address] [place] [address] 07/29/2010 09:19:09 07/30/2010 14:16:52 [id number] Arabella Bain [facility] [place] [address] 01/03/2011 12:22:58 01/05/2011 10:27:36 [id number] Arabella Bain [facility] [place] [address] 12/12/2011 11:41:45 12/15/2011 12:36:29 [id number] Arabella Bain [facility] [place] [address] 08/27/2012 14:46:02 08/30/2012 10:42:43 Health Concerns Section Related Observation LastModified by Organization Detai ls LastModified Time None Recorded Concern Status LastModified by Organization Details LastModified Time None Recorded Advance Directives Directive None Recorded Payers Insurance Date Sequence Insurance Name Policy Number Policy Bynum Covered Member ID Bynum Member ID Guarantor Name 03/29/2014 1 [employer] - CHOICE - OPEN ACCESS (POS) [id number] Vi Mosley [id number] Nehemias Mosley 03/29/2014 1 [employer] ([id number]) [id number] Vi Mosley [id number] Nehemias Mosley Notes Date Note Type Note Provider Name and Address Organization Details Recorded Time 07/29/2010 text/html f/u depression meds; 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 Academic performance is not very good this year - F in Geometry, D in Polish, A in Drafting, and Bs and Cs in other subjects. Primarily doesn't do homework and that it is the main reason that his grades are so poor in ceratin subjects. He really likes drafting though. He is going to school on a regular basis - ther are no problems with that this year. He does do things with friends. Dad states that he and Red's mother feel that overall he is doing better - he no longer stays in his room all the time and he no longer cuts on himself. He denies any trouble sleeping at night or staying asleep Arabella Bain MD [address] [facility] [address], [place], [address], [place] [facility], 07/29/2010 11:42:10 01/03/2011 text/html F/U for depression. Has been picking at arms and creating sores. Has had finals and has been very anxious. Thinking about moving to [facility] to see parents.Is on Celexa, 60 mg daily. Wants to go live with natural parents in [place] for the summer; adoptive parents are going to let hime go. If he wasnts to stay with the natural parents, adoptive parents have told him he can. Adoptive father feels that he is l;azy, doesn't care about anything. Pt is failing at least 3 classes at school because he just doesn't care. Pt denies having any sleep issues, stays in h is bedroom most of the time that he is home. yells at his adoptive parents when they tell him to do anything. Adoptive father and pt feel that his arm picking has started since the palanning for [facility] has been in play. There is no cutting issues going on. Adoptive father states that school insisted on him bringing pt in to see if there was something I could do about the picking..May be leaving for [place] this week or next. Arabella Bain MD [address] [place] [address], [address], [facility], 01/04/2011 00:44:37 12/12/2011 text/html Monday jumped off [place] and twisted right ankle. C/o pain and swelling to ankle and top of foot. Sl bruising. Hurst to bear weight Arabella Bain MD [address] [place] [address] [address], [address], [facility], 12/12/2011 15:09:42 08/27/2012 text/html c/o can't hear out of right ear. Feels off balance. Ear has been bothering him for the past 3 - 4 days. No noted hx of trauma. No nasal sx. Cleans ears with Qtips but doesn't remember hurting his ear recently. States his hearing is muffled on the right and there is a high pitched ringing in his right ear. Arabella Bain MD [address] [place] [address] [address], [place], [address], [facility], 08/27/2012 22:38:50
[2025-08-01 08:37] LABS: EDCOVIDSCREEN Negative (Negative); EDINFLUASCREEN Positive (Negative); EDINFLUBSCREEN Negative (Negative)
== END 2025-08-01 08:40 | disposition home or self-care (01) ==
PROVIDERS: Emergency Provider Nurse Practitioner
DX: J10.1 Influenza due to other identified influenza virus with other respiratory manifestations (principal); Z20.822 Contact with and (suspected) exposure to COVID-19
CPT/HCPCS: 87426; 87804; 99212; G0463